=== PATIENT | male | born 1945 | race Caucasian/White ===

== ENCOUNTER → 2017-07-20 08:41 | Outpatient (CLI) | payer MEDICARE, OTHER, SELFPAY ==
[2017-07-20 10:48] LABS: AST(SGOT) 22 U/L (15-37); Alanine Aminotransfer ALT/SGPT 31 U/L (16-61); Albumin, Serum 3.6 g/dL (3.2-5.0); Alkaline Phosphatase 89 U/L (45-117); Anion Gap 8 (5-15); BUN 18 mg/dL (7-18); BUN/Creat Ratio 12.9 RATIO (10-20); Bilirubin, Direct 0.09 mg/dL (0.00-0.30); Chloride 106 mmol/L (98-107); Cholesterol 162 mg/dL (200); EST Glomerular Filtration Rate 53 mL/min (>60); Est Glom Filt Rate - Afr Amer 64 mL/min (>60); Globulin 3.5 g/dL (2.2-4.2); Glucose 98 mg/dL (74-106); High Density Lipoprotein 32 mg/dL; Potassium 4.2 mmol/L (3.5-5.1); Protein, Total 7.1 g/dL (6.4-8.2); Sodium Level 142 mmol/L (136-145); Triglycerides 165 mg/dL; Very Low Density Lipoprotein 33 mg/dL (5-40)
== END ==
PROVIDERS: Family Provider Family Medicine; PCP Family Medicine; Visit Provider Family Medicine
DX: I10 Essential (primary) hypertension (principal); E78.00 Pure hypercholesterolemia, unspecified
CPT/HCPCS: 36415; 80048; 80061; 80076

== ENCOUNTER → 2018-02-22 16:26 | Outpatient (CLI) | payer MEDICARE, OTHER, SELFPAY ==
--- NOTE | 2018-02-22 17:23 | RAD_ITS ---
HISTORY: Patient states he fell a couple of weeks ago onto his left knee. Pain and swelling since then and it is very hard to walk on it without it feeling like it is going to go out on him. COMPARISON: None FINDINGS: XR Knee Complete 4 Views No fracture or acute disease. Osteoarthritis with moderate to marked narrowing of the tibiofemoral medial compartment accompanied by subchondral sclerosis and mild marginal spurring. The lateral joint space compartment and patellofemoral joint appear preserved. No bony erosions. No significant joint effusion. Probable fabella. RAD/Knee 4 or More Views IMPRESSION: 1. Moderate to advanced osteoarthritis, medial compartment, left knee. 2. No fracture or acute disease. at 0113 Reported and signed by: Zoltan Bocanegra MD Electronically Signed: Zoltan Bocanegra, at 1:11 EST Tel , Service support ,
[2018-02-22 18:34] LABS: Anion Gap 9 (5-15); BUN 17 mg/dL (7-18); BUN/Creat Ratio 10.3 RATIO (10-20); Calcium,Total 8.8 mg/dL (8.5-10.1); Chloride 104 mmol/L (98-107); Creatinine, Serum 1.65 mg/dL (0.70-1.30); EST Glomerular Filtration Rate 44 mL/min (>60); Est Glom Filt Rate - Afr Amer 53 mL/min (>60); Glucose 132 mg/dL (74-106); Potassium 4.1 mmol/L (3.5-5.1); Sodium Level 140 mmol/L (136-145)
== END ==
PROVIDERS: Family Provider Family Medicine; PCP Family Medicine; Visit Provider Family Medicine
DX: I10 Essential (primary) hypertension (principal); M25.562 Pain in left knee
CPT/HCPCS: 36415; 73564; 80048

== ENCOUNTER → 2018-08-24 | Outpatient (CLI) | payer MEDICARE, OTHER, SELFPAY ==
--- NOTE | 2018-08-24 10:36 | RAD_ITS ---
STUDY: X-RAY CHEST REASON FOR EXAM: Male, 73 years old. Chest pain TECHNIQUE: AP COMPARISON: None. FINDINGS: The lungs are clear and expanded. There is no demonstrated pleural abnormality. Normal size heart. Normal mediastinum and alan. Normal visualized pulmonary arteries. There is atherosclerotic calcification of the aortic arch with tortuosity. There are diffuse degenerative changes of the visualized thoracic spine. Normal visualized ribs, clavicles, and shoulders. There is no demonstrated abnormality of the visualized soft tissue structures of the upper abdomen. RAD/Chest PA and Lateral IMPRESSION: No acute cardiopulmonary process. Electronically Signed: Haroon Peña MD at 14:55 EDT , Service support ,
[2018-08-24 12:32] LABS: Absolute Lymphocyte Count 1.26 X10^3/ul (0.83-4.51); Absolute Neutrophil Count 5.1 X10^3/uL (2.0-7.7); Basophil# 0.02 X10^3/uL; Basophil% 0.3 % (0-1); Eosinophil# 0.08 X10^3/uL; Eosinophils% 1.1 % (0-5); Hematocrit 46.2 % (40-54); Lymphocyte # 1.26 X10^3/ul (4.0); Lymphocyte % 16.9 % (19-41); Mean Corp Hgb Conc 34.6 g/gl (32-36); Mean Corpuscular Hgb 31.1 pg (27.0-32.0); Mean Corpuscular Volume 89.9 fL (80-94); Monocyte# 0.94 X10^3/uL; Monocyte% 12.6 % (0-10); Neutrophil # 5.13 X10^3/uL (2.7-7.7); Platelet Count 211 K/mm3 (150-450); RBC Distribution Width CV 13.8 % (11.6-14.6); RBC Distribution Width SD 45.2 fl (35.1-43.9); Red Blood Count 5.14 M/mm3 (4.6-6.2); White Blood Count 7.4 K/mm3 (4.4-11.0)
[2018-08-24 12:35] LABS: POSITIVE COUNT NO; POSITIVE DIFFERENTIAL NO; POSITIVE MORPHOLOGY NO
[2018-08-24 12:41] LABS: Anion Gap 5 (5-15); BUN 22 mg/dL (7-18); Calcium,Total 9.3 mg/dL (8.5-10.1); Chloride 104 mmol/L (98-107); Cholesterol 170 mg/dL (200); Creatinine, Serum 1.69 mg/dL (0.70-1.30); EST Glomerular Filtration Rate 43 mL/min (>60); Est Glom Filt Rate - Afr Amer 52 mL/min (>60); Glucose 98 mg/dL (74-106); High Density Lipoprotein 29 mg/dL; Sodium Level 138 mmol/L (136-145); Triglycerides 276 mg/dL; Very Low Density Lipoprotein 55 mg/dL (5-40)
== END | disposition home or self-care (01) ==
LOC: MTLAB 10:33
PROVIDERS: Family Provider Family Medicine; PCP Family Medicine; Referring Provider Family Medicine; Visit Provider Family Medicine
DX: E78.5 Hyperlipidemia, unspecified (principal); I10 Essential (primary) hypertension; R07.9 Chest pain, unspecified
CPT/HCPCS: 36415; 71046; 80048; 80061; 84484; 85025

== ENCOUNTER → 2019-02-20 | Outpatient (CLI) | payer MEDICARE, SELFPAY ==
[2019-02-20 12:39] LABS: Anion Gap 7 (5-15); BUN 15 mg/dL (7-18); BUN/Creat Ratio 10.7 RATIO (10-20); Calcium,Total 9.1 mg/dL (8.5-10.1); Chloride 104 mmol/L (98-107); Cholesterol 181 mg/dL (200); EST Glomerular Filtration Rate 53 mL/min (>60); Est Glom Filt Rate - Afr Amer 64 mL/min (>60); Glucose 131 mg/dL (74-106); High Density Lipoprotein 34 mg/dL; Potassium 4.1 mmol/L (3.5-5.1); Sodium Level 139 mmol/L (136-145); Triglycerides 234 mg/dL; Very Low Density Lipoprotein 47 mg/dL (5-40)
== END | disposition home or self-care (01) ==
PROVIDERS: Family Provider Family Medicine; PCP Family Medicine; Referring Provider Family Medicine; Visit Provider Family Medicine
DX: E78.5 Hyperlipidemia, unspecified (principal); I10 Essential (primary) hypertension
CPT/HCPCS: 36415; 80048; 80061

== ENCOUNTER → 2019-08-21 12:00 | Outpatient (CLI) | payer MEDICARE, SELFPAY ==
[2019-08-21 15:44] LABS: Anion Gap 8 (5-15); BUN 14 mg/dL (7-18); Calcium,Total 9.1 mg/dL (8.5-10.1); Chloride 104 mmol/L (98-107); EST Glomerular Filtration Rate 53 mL/min (>60); Est Glom Filt Rate - Afr Amer 64 mL/min (>60); Glucose 111 mg/dL (74-106); Potassium 3.9 mmol/L (3.5-5.1); Sodium Level 140 mmol/L (136-145)
== END ==
PROVIDERS: PCP Family Medicine; Visit Provider Family Medicine
DX: I10 Essential (primary) hypertension (principal)
CPT/HCPCS: 36415; 80048

== ENCOUNTER 2020-02-20 13:09 | Inpatient (IN) | payer MEDICARE, SELFPAY ==
[2020-02-20 13:16] VITALS: BP 175/100; PULSE 85; RESP 21; TEMP 37.1; O2SAT 94; BMI 26.9
--- NOTE | 2020-02-20 13:31 | EKG12_ITS ---
Test Reason : Blood Pressure : / mmHG Vent. Rate : 079 BPM Atrial Rate : 079 BPM P-R Int : 162 ms QRS Dur : 144 ms QT Int : 410 ms P-R-T Axes : 056 -18 060 degrees QTc Int : 470 ms Normal sinus rhythm Right bundle branch block Abnormal ECG Confirmed by MOHINI SHULTZ, VANNESSA ([id number]), social media editor RUTH HOYOS ([id number]) on 02/21/2020 11:11:52 AM Referred By: MARLEEN Confirmed By:VANNESSA RAJAN MD
--- NOTE | 2020-02-20 13:31 | CT_ITS ---
STUDY: CT BRAIN WITHOUT CONTRAST REASON FOR EXAM: Male, 74 years old. MENTAL STATUS CHANGE RADIATION DOSAGE (If Supplied By Facility): CTDIvol = ( 44.99 ) mGy, DLP = ( 846.73 ) mGycm TECHNIQUE: Transaxial CT imaging of the brain was performed without administration of intravenous contrast material. Individualized dose optimization techniques were used for this CT. COMPARISON: No relevant priors. FINDINGS: Normal soft tissue structures. Normal calvarium. There is mild cerebral atrophy with widening of the extra-axial spaces and ventricular dilatation. There are areas of decreased attenuation within the white matter tracts of the supratentorial brain, consistent with microvascular disease changes. Normal basal ganglia and thalami. Normal brainstem. Normal cerebellum. There is no intracranial hemorrhage. There are no findings of an acute ischemic infarction. Atherosclerotic calcification of the cavernous portions of the internal carotid arteries bilaterally. Normal visualized paranasal sinuses. CT/Brain/Head without Contrast IMPRESSION: Chronic involutional changes of the brain. Electronically Signed: Tu Rosario, at 15:41 EST , Service support ,
--- NOTE | 2020-02-20 13:32 | CT_ITS ---
STUDY: CT ABDOMEN AND PELVIS WITHOUT CONTRAST REASON FOR EXAM: Male, 74 years old. ABD PAIN RADIATION DOSAGE (If Supplied By Facility): CTDIvol = ( 17.01 ) mGy, DLP = ( 938.96 ) mGycm TECHNIQUE: Transaxial images were obtained from the dome of the diaphragm to the symphysis pubis without oral contrast, and without intravenous contrast. Sagittal and coronal images were reconstructed. Individualized dose optimization techniques were used for this CT. COMPARISON: None. FINDINGS: Focal infiltration in the right lower lobe. Mild degree of bilateral pleural thickening. Mild increased markings at the left lung base. Coronary artery calcification. Normal liver. Normal gallbladder and extrahepatic biliary system. Normal spleen. Normal pancreas. Normal bilateral adrenal glands. Normal right kidney. Normal left kidney. Normal visualized stomach. Normal small intestine. There are multiple colonic diverticula consistent with diverticulosis. The appendix is visualized and appears normal. There is diffuse atherosclerotic calcification of the abdominal aorta and its major visceral branches, without a demonstrated aneurysm. Normal inferior vena cava. Normal retroperitoneum. Normal urinary bladder. There is a small umbilical hernia containing fat. There are diffuse degenerative changes of the visualized lumbar spine. CT/Abdomen/Pelvis without Cont IMPRESSION: Infiltration in the right lower lobe with pericardial thickening bilaterally and mild increased markings at the left lung base. Sigmoid diverticulosis. Electronically Signed: Tu Rosario, at 15:40 EST , Service support ,
--- NOTE | 2020-02-20 13:38 | ED.VIS.GEN ---
History of Present Illness Chief Complaint: Unresponsive Informant: Patient, Family Onset: Weeks Narrative: Patient brought in by EMS secondary to decreased level of consciousness. is present at bedside to answer questions. She states that they have both been ill with cough and generally not feeling well for the past 3 weeks. For the past week he has not really been speaking to her. He will moan with movement as if he is in pain but does not answer questions. She states has not been eating or drinking anything over the past 3 or 4 days, but is taking his medications. She called the family doctor today to make an appointment who advised her to have him brought to the emergency room. - Past Medical History (1) Dementia Status: Chronic (2) Hypertension Status: Chronic (3) High cholesterol Status: Chronic Past Medical History - Allergies and Home Meds Allergies/Adverse Reactions: Allergies No Known Allergies Allergy (Verified 02/20/20 13:22) Primary Care Physician: Yrn Pinto MD [Primary Care Provider] - Lives: Spouse/ Significant Other Smoking Status: Never smoker Review of Systems ROS: Unable to Obtain - Moans with movement as if he is in pain Physical Exam Vital Signs/Narrative: Vital Signs Temp Pulse Resp BP Pulse Ox 02/20/20 13:16 98.7 F 85 21 H 175/100 H 94 General: Well nourished, Well developed Eyes: Perrl - Pupils 2 to 3 mm in diameter ENT: Moist mucous membranes Neck: Supple Cardiovascular: Regular rate, Regular rhythm Respiratory: No distress, CTA bilaterally Abdomen: Soft, Tender - Mild diffuse tenderness palpation., Hypoactive bowel sounds. Negative for: Guarding, Rebound tenderness Extremities: Nontender, Edema - 3+ bilateral lower extremity edema Skin: Normal color Neurological: - - Resting with eyes closed. He will squeeze both hands when asked. He will open eyes to command. Diagnostic/Tx/Re-eval Impressions Brain CT 02/20/20 13:31 IMPRESSION: Chronic involutional changes of the brain. Electronically Signed: Tu Rosario, at 15:41 EST , Service support , Abdomen/Pelvis CT 02/20/20 13:32 IMPRESSION: Infiltration in the right lower lobe with pericardial thickening bilaterally and mild increased markings at the left lung base. Sigmoid diverticulosis. Electronically Signed: Tu Rosario, at 15:40 EST , Service support , 02/20/20 13:31 Brain/Head without Contrast [CT] Stat 02/20/20 13:32 Abdomen/Pelvis without Cont [CT] Stat Laboratory Results 02/20/20 02/20/20 02/20/20 11:47 14:30 14:30 WBC 4.6 RBC 5.63 Hgb 17.2 H Hct 52.0 MCV 92.4 MCH 30.6 MCHC 33.1 RDW Std Deviation 47.0 H RDW Coeff of Jovi 13.8 Plt Count 155 MPV 10.0 Immature Gran % (Auto) 0.400 Neut % (Auto) 69.0 Lymph % (Auto) 16.4 L [place] % (Auto) 14.0 H Eos % (Auto) 0.0 Baso % (Auto) 0.2 Absolute Neuts (auto) 3.1 Absolute Lymphs (auto) 0.75 L Nucleated RBC % 0 Sodium 144 Potassium 4.3 Chloride 108 H Carbon Dioxide 30.0 Anion Gap 6 BUN 57 H Creatinine 2.25 H Estim Creat Clear Calc 32.09 Est GFR (MDRD) Af Amer 37 L Est GFR (MDRD) Non-Af 31 L BUN/Creatinine Ratio 25.3 H Glucose 122 H Lactic Acid Calcium 9.2 Total Bilirubin 0.90 Direct Bilirubin 0.31 H AST 57 H ALT 37 Alkaline Phosphatase 87 Ammonia Troponin I < 0.015 Total Protein 8.1 Albumin 3.6 Globulin 4.5 H Lipase 121 Urine Color Yellow Urine Clarity Sl. Cloudy Urine pH 5.0 Ur Specific [place] 1.025 Urine Protein 500 H Urine Glucose (UA) Normal Urine Ketones Negative Urine Occult Blood 25 H Urine Nitrite Negative Urine Bilirubin Negative Urine Urobilinogen Normal Ur Leukocyte Esterase Negative Urine RBC 0-5 SEEN Urine WBC 0 SEEN Ur Squamous Epith Cells 0-5 SEEN Amorphous Sediment 2+ URATE Urine Bacteria 0 SEEN Fine Granular Casts 0-5 SEEN Urine Mucus 0 SEEN 02/20/20 02/20/20 14:30 14:30 WBC RBC Hgb Hct MCV MCH MCHC RDW Std Deviation RDW Coeff of Jovi Plt Count MPV Immature Gran % (Auto) Neut % (Auto) Lymph % (Auto) [place] % (Auto) Eos % (Auto) Baso % (Auto) Absolute Neuts (auto) Absolute Lymphs (auto) Nucleated RBC % Sodium Potassium Chloride Carbon Dioxide Anion Gap BUN Creatinine Estim Creat Clear Calc Est GFR (MDRD) Af Amer Est GFR (MDRD) Non-Af BUN/Creatinine Ratio Glucose Lactic Acid 2.1 H* Calcium Total Bilirubin Direct Bilirubin AST ALT Alkaline Phosphatase Ammonia 15.0 Troponin I Total Protein Albumin Globulin Lipase Urine Color Urine Clarity Urine pH Ur Specific [place] Urine Protein Urine Glucose (UA) Urine Ketones Urine Occult Blood Urine Nitrite Urine Bilirubin Urine Urobilinogen Ur Leukocyte Esterase Urine RBC Urine WBC Ur Squamous Epith Cells Amorphous Sediment Urine Bacteria Fine Granular Casts Urine Mucus - EKG Initial EKG Interpretation: Sinus Rhythm - Sinus at 79 with right bundle branch block. No sign of acute ischemia. Not significantly changed when compared to prior study from 2012. - Medical Decision Making Patient given IV fluids on arrival. equipment monitor phototypesetting observed throughout his ED stay revealed no arrhythmias. Patient is responsive to voice and will open eyes to command. Test results discussed with at bedside. He does appear to be somewhat dehydrated and has a mildly elevated lactate. IV fluid bolus was ordered. CT flank does reveal lower lobe infiltrate and he is covered with Rocephin and Zithromax. Covid test is pending at this time will be signed out to oncoming physician. Plan will be to admit the patient once Covid test is available. ED Disposition - Plan for ED Patient: Disposition: Acute Care Hospital [facility] Diagnosis: Pneumonia, Dehydration Referrals: Yrn Pinto MD [Primary Care Provider] -
[2020-02-20] MEDS: 0.9% Normal Saline 1,000 ML 150 ML IV (15:05)
[2020-02-20 15:16] LABS: Bacteria 0 SEEN /hpf (None Seen); Mucous, Urine 0 SEEN /hpf (<or=2+); White Blood Cells 0 SEEN /hpf (0-5)
[2020-02-20 15:17] LABS: Absolute Lymphocyte Count 0.75 X10^3/uL (0.83-4.51); Absolute Neutrophil Count 3.1 X10^3/uL (2.0-7.7); Basophil# 0.01 X10^3/uL; Basophil% 0.2 % (0-1); Hemoglobin 17.2 g/dL (13.0-16.5); Lymphocyte # 0.75 X10^3/ul (4.0); Lymphocyte % 16.4 % (19-41); Mean Corp Hgb Conc 33.1 g/dL (32-36); Mean Corpuscular Hgb 30.6 pg (27.0-32.0); Mean Corpuscular Volume 92.4 fL (80-94); Monocyte# 0.64 X10^3/uL; NRBC Flagged by Analyzer 0 % (0-5); Neutrophil # 3.14 X10^3/uL (2.7-7.7); Platelet Count 155 K/mm3 (150-450); RBC Distribution Width CV 13.8 % (11.6-14.6); Red Blood Count 5.63 M/mm3 (4.6-6.2); White Blood Count 4.6 K/mm3 (4.4-11.0)
[2020-02-20 15:18] LABS: Color, Urine Yellow (Yellow); Glucose, Dipstick Normal (Normal); Ketone-Dipstick Negative (Negative); Leukocyte Esterase-Dipstick Negative /ul (Negative); Nitrite-Dipstick Negative (Negative); Occult Blood-Urine 25 /ul (Negative); Protein-Dipstick 500 mg/dl (Negative); Specific Gravity, Urine 1.025 (1.002-1.030); Urine Bilirubin Dipstick Negative (Negative); Urine Clarity Sl. Cloudy (Clear); Urine Urobilinogen Normal (Normal)
[2020-02-20 15:26] LABS: Amorphous Sediment 2+ URATE; Fine Granular Cast- Urine 0-5 SEEN /lpf (0-5); Red Blood Cells-Urine 0-5 SEEN /hpf (0-5); Squamous Epithelial Cells - UA 0-5 SEEN /hpf (0-5)
[2020-02-20 15:40] LABS: AST(SGOT) 57 U/L (15-37); Alanine Aminotransfer ALT/SGPT 37 U/L (16-61); Albumin, Serum 3.6 g/dL (3.2-5.0); Alkaline Phosphatase 87 U/L (45-117); Anion Gap 6 (5-15); BUN 57 mg/dL (7-18); BUN/Creat Ratio 25.3 RATIO (10-20); Bilirubin, Direct 0.31 mg/dL (0.00-0.30); Calcium,Total 9.2 mg/dL (8.5-10.1); Chloride 108 mmol/L (98-107); Creatinine, Serum 2.25 mg/dL (0.70-1.30); EST Glomerular Filtration Rate 31 mL/min (>60); Est Glom Filt Rate - Afr Amer 37 mL/min (>60); Estimated Creatinine Clearance 32.09 ml/min; Globulin 4.5 g/dL (2.2-4.2); Glucose 122 mg/dL (74-106); Lactic Acid 2.1 mmol/L (0.4-1.9); Lipase 121 U/L (73-393); Potassium 4.3 mmol/L (3.5-5.1); Protein, Total 8.1 g/dL (6.4-8.2); Sodium Level 144 mmol/L (136-145)
[2020-02-20 16:02] VITALS: BP 167/94; PULSE 74; RESP 14; O2SAT 94
[2020-02-20] MEDS: Ceftriaxone 1 GM/50 ML BAG IV (16:37)
[2020-02-20] MEDS: 0.9% Normal Saline 1,000 ML 999 ML IV ×2 (16:38→18:30)
--- NOTE | 2020-02-20 19:06 | ED.RN ---
Patient becomes agitated at times and now is verbally responsive and answering questions. Patient is confused and has pulled out both IVs. The right side IV noted to be infiltrated. MD notified and pharmacy called. warm compress applied to site after IV d/c'd by this nurse. New iv placed and wrapped. Will continue to monitor.
[2020-02-20 19:12] LABS: Reflex Lactate? Y
--- NOTE | 2020-02-20 19:40 | RAD_ITS ---
STUDY: X-RAY CHEST REASON FOR EXAM: Male, 74 years old. SOB TECHNIQUE: Frontal view COMPARISON: 08/24/2018 FINDINGS: The lungs are clear and expanded. There is no demonstrated pleural abnormality. Normal size heart. Normal mediastinum and alan. Normal visualized pulmonary arteries. Normal visualized aortic arch and descending thoracic aorta. Degenerative changes of the thoracic spine. Normal visualized ribs, clavicles, and shoulders. There is no demonstrated abnormality of the visualized soft tissue structures of the upper abdomen. RAD/Chest 1 View (Portable) IMPRESSION: Normal x-ray examination of the chest. Electronically Signed: Carlos A Tobin DO at 20:31 EST Tel [phone], Service support ,
[2020-02-20 20:03] VITALS: BP 180/93; PULSE 85; RESP 18; TEMP 37.7; O2SAT 94
--- NOTE | 2020-02-20 20:32 | HP.PCM_ITS ---
Problem List (1) Dementia Status: Chronic (2) Hypertension Status: Chronic (3) High cholesterol Status: Chronic (4) Pneumonia Status: Acute (5) Dehydration Status: Acute (6) SARS (severe acute respiratory syndrome) Status: Acute (7) RAUL (acute kidney injury) Status: Acute (8) Encephalopathy acute Status: Acute History of Present Illness Date of Admission: 02/20/20 Chief Complaint: altered mental status The patient is a 74 year old M with a significant history of HTN and dementia who presents to the ED with altered mental status that started about 1 week. Reportedly patient has been moaning in pain with movement. He has not been eating or drinking for the last 3 to 4 days. And he has had a cough for about 3 weeks. History was taken from emergency department doctor and (over the phone) as well as from ED triage notes since patient is confused. Past Medical History Past Medical History (Chronic Problems): Chronic Problems Dementia (Chronic) Hypertension (Chronic) High cholesterol (Chronic) Allergies No Known Allergies Allergy (Verified 02/20/20 13:22) Home Medications: Ambulatory Orders Medication Instructions Recorded Amlodipine [Norvasc] 10 mg PO DAILY 02/20/20 Aspirin [Aspirin, Baby] 81 mg PO DAILY 02/20/20 Donepezil HCl [Aricept] 23 mg PO DAILY 02/20/20 Famotidine 20 mg PO BID PRN 02/20/20 Memantine HCl [Namenda] 10 mg PO BID 02/20/20 Metoprolol Tartrate 25 mg PO DAILY 02/20/20 Omeprazole [Prilosec] 20 mg PO QHS 02/20/20 Pravastatin [Pravachol] 40 mg PO DAILY 02/20/20 Vitamin B Complex 1 tab PO DAILY 02/20/20 cycloBENZAPRine HCl [Flexeril] 10 mg PO QHS PRN 02/20/20 Surgical History: - - Patient is confused and unable to provide information. His does not recall any surgery that patient had. Lives: Spouse/ Significant Other Smoking Status: Never smoker - *Family History Maternal History Items: Dementia Paternal History Items: Dementia Review of Systems Constitutional: Reports: Anorexia, Malaise HEENT: Denies: Head Aches, Sinus Congestion, Sinus Drainage Cardiovascular: Denies: Chest Pain, Palpitations Respiratory: Reports: Cough. Denies: Wheezing Gastrointestinal: Reports: Abdominal Pain. Denies: Constipation, Diarrhea Genitourinary: Denies: Dysuria Musculoskeletal: Reports: Muscle pain. Denies: Joint Pain, Joint Tenderness Skin: Denies: Rash, Wounds Neurological: Reports: Confusion. Denies: Focal weakness, Numbness, Tingling Psychiatric: Denies: Anxiety, Depression, Homicidal Ideations, Suicidal Ideations Hematologic/ Lymphatic: Denies: Easy Bruising, Easy Bleeding VTE Information - Inpt Only VTE Present on Admission: No VTE Mechan Device Prophylaxis: None VTE Pharm Prophylaxis ordered?: Yes Patient Problems: Active and Suspected Problems Pneumonia (Acute) Dehydration (Acute) SARS (severe acute respiratory syndrome) (Acute) RAUL (acute kidney injury) (Acute) - Physical Exam Vitals/I&O's: Vital Signs Temp Pulse Resp BP Pulse Ox 99.9 F H 85 18 180/93 H 94 02/20/20 20:03 02/20/20 20:03 02/20/20 20:03 02/20/20 20:03 02/20/20 20:03 Oxygen Delivery Method Room Air Weight: 90.2 kg Body Mass Index (BMI) 26.9 Intake and Output for Last 24 Hours 02/18/20 02/19/20 02/20/20 23:59 23:59 23:59 Intake Total 3237.5 / 3237.5 Balance 3237.5 / 3237.5 General: Alert, Confused HEENT: Atraumatic, Normocephalic Neck: Supple, Trachea Midline Lungs: Clear to auscultation, Normal air movement Cardiovascular: Regular rate, Normal S1, Normal S2, No murmurs Abdomen: Bowel Sounds Present, Soft, Tender - Moans when his abdomen and any part of his body is palpated. Extremities: Capillary Refill Less than 3 Seconds, Edema - bilateral feet Skin: No rashes, No breakdown Musculoskeletal: Tenderness - bilateral feet Neurological: - - Does not follow commands Psych/Mental Status: Flat Affect Laboratory Results 02/20/20 11:47: Urine Color Yellow, Urine Clarity Sl. Cloudy, Urine pH 5.0, Ur Specific [place] 1.025, Urine Protein 500 H, Urine Glucose (UA) Normal, Urine Ketones Negative, Urine Occult Blood 25 H, Urine Nitrite Negative, Urine Bilirubin Negative, Urine Urobilinogen Normal, Ur Leukocyte Esterase Negative, Urine RBC 0-5 SEEN, Urine WBC 0 SEEN, Ur Squamous Epith Cells 0-5 SEEN, Amorphous Sediment 2+ URATE, Urine Bacteria 0 SEEN, Fine Granular Casts 0-5 SEEN, Urine Mucus 0 SEEN 02/20/20 14:30: WBC 4.6, RBC 5.63, Hgb 17.2 H, Hct 52.0, MCV 92.4, MCH 30.6, MCHC 33.1, RDW Std Deviation 47.0 H, RDW Coeff of Jovi 13.8, Plt Count 155, MPV 10.0, Immature Gran % (Auto) 0.400, Neut % (Auto) 69.0, Lymph % (Auto) 16.4 L, [place] % (Auto) 14.0 H, Eos % (Auto) 0.0, Baso % (Auto) 0.2, Absolute Neuts (auto) 3.1, Absolute Lymphs (auto) 0.75 L, Nucleated RBC % 0 02/20/20 14:30: Sodium 144, Potassium 4.3, Chloride 108 H, Carbon Dioxide 30.0, Anion Gap 6, BUN 57 H, Creatinine 2.25 H, Estim Creat Clear Calc 32.09, Est GFR (MDRD) Af Amer 37 L, Est GFR (MDRD) Non-Af 31 L, BUN/Creatinine Ratio 25.3 H, Glucose 122 H, Calcium 9.2, Total Bilirubin 0.90, Direct Bilirubin 0.31 H, AST 57 H, ALT 37, Alkaline Phosphatase 87, Troponin I < 0.015, Total Protein 8.1, Albumin 3.6, Globulin 4.5 H, Lipase 121 02/20/20 14:30: Lactic Acid 2.1 H* 02/20/20 14:30: Ammonia 15.0 02/20/20 15:40: COVID-19 ([facility]ILIA) Positive 02/20/20 19:55: Lactic Acid Pending Current Medications Sodium Chloride () 1,000 mls @ 150 mls/hr IV .[id number] [facility] Last Infusion: 02/20/20 16:38 Dose: 0 mls/hr Documented by: Assessment/Plan All Active Problems Pneumonia (Acute) Dehydration (Acute) SARS (severe acute respiratory syndrome) (Acute) RAUL (acute kidney injury) (Acute) Encephalopathy acute (Acute) SARS COVID-19 infection/Pneumonia Radiologist impression of abdominal/pelvis CT: Infiltration the right lower lobe with pericardial thickening bilaterally and mild increased markings at the left lung base. Sigmoid diverticulosis. Actual image abdomen and pelvis CT was independently reviewed. I agree with radiologist interpretation. Radiology impression of chest x-ray: Normal x-ray examination of the chest. Actual chest x-ray image was independently reviewed. I agree with radiologist interpretation. COVID-19 was positive. Procalcitonin, strep pneumonia antigen and Legionella urine antigen ordered. Received ceftriaxone and azithromycin ordered. We will hold off further antibiotics at this time. Patient is not hypoxic. D-dimer not ordered at this time. Emergent department labs reviewed showed lactic acidosis of 2.1; trend. Also AST is elevated at 57. Review of old labs showed normal baseline AST. Trend CMP. Tylenol for fever and Mucinex for cough ordered. Decadron 6 mg IV x1 and then 6 mg p.o. daily ordered. Infectious disease consult and pulmonology consult. RAUL Creatinine is 2.25 BUN is 57. BUN over creatinine is 25.3 Baseline creatinine is between 1.40-1.69. Likely prerenal from poor intake. Received normal saline bolus and then maintenance infusion at emergency department. Gentle IV hydration ordered in the setting of COVID-19 infection. Acute encephalopathy (infectious) Patient with baseline dementia. Likely baseline confusion exacerbated by infection. Haldol ordered for agitation as Nurse reported that patient ripped off his IV and is agitated. Hypertension On presentation blood pressure was not within goal Amlodipine continued Dementia Aricept and Namenda continued GERD Pepcid continued DVT prophylaxis Subcutaneous Lovenox ordered. Inpatient E&M: 52970 Init Hosp L3
[2020-02-20 20:35] VITALS: BMI 26.3
[2020-02-20 21:09] VITALS: BP 145/96; PULSE 89; RESP 18; TEMP 37.7; O2SAT 95
[2020-02-20] MEDS: 0.9% Normal Saline 1,000 ML 75 ML IV (21:24)
[2020-02-20 21:38] LABS: Procalcitonin 0.21 ng/mL (0.00-0.09)
[2020-02-20] MEDS: dexAMETHasone 10 MG/ML Vial 6 MG IV (22:11)
[2020-02-20] MEDS: Enoxaparin 30 MG/0.3 ML Syringe SC (22:12)
[2020-02-20] MEDS: Memantine Hydrochloride 10 MG Tablet PO (22:12)
[2020-02-20] MEDS: Pravastatin 40 MG Tablet PO (22:12)
[2020-02-20] MEDS: Haloperidol Lactate 5 MG/ML Vial 2 MG IM (22:47)
[2020-02-21] VITALS (8 sets, daily range): BP systolic 122–167; BP diastolic 73–94; PULSE 71–85; RESP 16–18; TEMP 36.3–37.7; O2SAT 94–97
[2020-02-21 05:32] LABS: Absolute Lymphocyte Count 0.43 X10^3/uL (0.83-4.51); Basophil# 0.01 X10^3/uL; Basophil% 0.3 % (0-1); Hematocrit 46.7 % (40-54); Hemoglobin 15.5 g/dL (13.0-16.5); Lymphocyte # 0.43 X10^3/ul (4.0); Lymphocyte % 11.4 % (19-41); Mean Corp Hgb Conc 33.2 g/dL (32-36); Mean Corpuscular Hgb 31.3 pg (27.0-32.0); Mean Corpuscular Volume 94.2 fL (80-94); Mean Platelet Vol. 10.3 fl (6.2-12.0); Monocyte# 0.32 X10^3/uL; Monocyte% 8.5 % (0-10); NRBC Flagged by Analyzer 0 % (0-5); Neutrophil # 2.97 X10^3/uL (2.7-7.7); POSITIVE DIFFERENTIAL YES; Platelet Count 138 K/mm3 (150-450); RBC Distribution Width CV 13.5 % (11.6-14.6); Red Blood Count 4.96 M/mm3 (4.6-6.2); White Blood Count 3.8 K/mm3 (4.4-11.0)
[2020-02-21 05:39] LABS: Differential Indicated SCAN CRITERIA MET
[2020-02-21 06:01] LABS: Anion Gap 7 (5-15); BUN 35 mg/dL (7-18); BUN/Creat Ratio 24.6 RATIO (10-20); Calcium,Total 8.3 mg/dL (8.5-10.1); Chloride 112 mmol/L (98-107); Creatinine, Serum 1.42 mg/dL (0.70-1.30); EST Glomerular Filtration Rate 52 mL/min (>60); Est Glom Filt Rate - Afr Amer 63 mL/min (>60); Estimated Creatinine Clearance 50.85 ml/min; Glucose 118 mg/dL (74-106); Potassium 3.8 mmol/L (3.5-5.1); Sodium Level 147 mmol/L (136-145)
[2020-02-21 06:40] LABS: Differential Comment SCANNED
--- NOTE | 2020-02-21 07:00 | PCM.PN.HOSP ---
Patient Problems: Active and Suspected Problems Pneumonia (Acute) Dehydration (Acute) SARS (severe acute respiratory syndrome) (Acute) RAUL (acute kidney injury) (Acute) Encephalopathy acute (Acute) COVID-19 (Acute) Subjective: Patient following admission with no acute events overnight per self or per nursing report with history of malaise, fatigue, decreased interactivity with poor oral intake over the last 3 to 4 days prompting presentation to the ED. Following evaluation patient denies any recent dyspnea but does have cough during evaluation and states he has had no nausea, emesis, abdominal pain or diarrhea. Patient is extremely confused but able to interact and answer some questions. Patient lives at home alone with his elderly . Patient denies fevers, chills, nausea, emesis, abdominal pain, chest pain or dyspnea. Objective: Physical Examination: General: awake, alert, oriented to self and realizes that he is in the hospital but cannot give month or year but able to answer other questions, remains cooperative, seated upright in medical surgical bed in no apparent distress. Skin: normal color, turgor, no icterus, cyanosis. HEENT: AT/NC, EOMI, PERRLA, moderately dry MM. Lungs: Diminished breath sounds, greater bases, appropriate effort, no rales, ronchi or wheezing. Heart: Regular rate and rhythm; no gallop, rub audible. Abdomen: soft, NTTP, ND, normal BS. Extremities: no cyanosis, clubbing, or edema. Neurological: patient awake, alert, oriented as noted; cognitive function suspect mildly decreased from baseline however patient with underlying dementia; pupils equally reactive to light and accomodation; cranial nerves II-XII grossly normal, moving all 4 extremities, no focal deficits, strength moderately to severely global decrease secondary to acute presentation. Psychiatric: affect appears fatigued, no acute evidence of depressive or anxiety feelings. Vitals/I&O's: Vital Signs Temp Pulse Resp BP Pulse Ox 98.5 F 85 18 142/90 H 95 02/21/20 05:09 02/21/20 05:09 02/21/20 05:09 02/21/20 05:09 02/21/20 05:09 Oxygen Delivery Method Room Air Weight: 194 lb Body Mass Index (BMI) 26.3 Intake and Output for Last 24 Hours 02/19/20 02/20/20 02/21/20 23:59 23:59 23:59 Intake Total 3357.5 / 3357.5 240 / 240 Balance 3357.5 / 3357.5 240 / 240 Microbiology Past 72 Hours 02/20/20 14:47 Urine Catheter - Catheter Legionella Antigen - Final 02/20/20 14:47 Urine Catheter - Catheter Streptococcus pneumoniae Antigen (M - Final Laboratory Results 02/20/20 11:47: Urine Color Yellow, Urine Clarity Sl. Cloudy, Urine pH 5.0, Ur Specific [place] 1.025, Urine Protein 500 H, Urine Glucose (UA) Normal, Urine Ketones Negative, Urine Occult Blood 25 H, Urine Nitrite Negative, Urine Bilirubin Negative, Urine Urobilinogen Normal, Ur Leukocyte Esterase Negative, Urine RBC 0-5 SEEN, Urine WBC 0 SEEN, Ur Squamous Epith Cells 0-5 SEEN, Amorphous Sediment 2+ URATE, Urine Bacteria 0 SEEN, Fine Granular Casts 0-5 SEEN, Urine Mucus 0 SEEN 02/20/20 14:30: WBC 4.6, RBC 5.63, Hgb 17.2 H, Hct 52.0, MCV 92.4, MCH 30.6, MCHC 33.1, RDW Std Deviation 47.0 H, RDW Coeff of Jovi 13.8, Plt Count 155, MPV 10.0, Immature Gran % (Auto) 0.400, Neut % (Auto) 69.0, Lymph % (Auto) 16.4 L, [place] % (Auto) 14.0 H, Eos % (Auto) 0.0, Baso % (Auto) 0.2, Absolute Neuts (auto) 3.1, Absolute Lymphs (auto) 0.75 L, Nucleated RBC % 0 02/20/20 14:30: Sodium 144, Potassium 4.3, Chloride 108 H, Carbon Dioxide 30.0, Anion Gap 6, BUN 57 H, Creatinine 2.25 H, Estim Creat Clear Calc 32.09, Est GFR (MDRD) Af Amer 37 L, Est GFR (MDRD) Non-Af 31 L, BUN/Creatinine Ratio 25.3 H, Glucose 122 H, Calcium 9.2, Total Bilirubin 0.90, Direct Bilirubin 0.31 H, AST 57 H, ALT 37, Alkaline Phosphatase 87, Troponin I < 0.015, Total Protein 8.1, Albumin 3.6, Globulin 4.5 H, Lipase 121 02/20/20 14:30: Lactic Acid 2.1 H* 02/20/20 14:30: Ammonia 15.0 02/20/20 14:30: Procalcitonin 0.21 H 02/20/20 15:40: COVID-19 (ADILIA) Positive 02/20/20 19:55: Lactic Acid 2.0 02/21/20 04:44: WBC 3.8 L, RBC 4.96, Hgb 15.5, Hct 46.7, MCV 94.2 H, MCH 31.3, MCHC 33.2, RDW Std Deviation 47.0 H, RDW Coeff of Jovi 13.5, Plt Count 138 L, MPV 10.3, Immature Gran % (Auto) 0.800, Neut % (Auto) 79.0 H, Lymph % (Auto) 11.4 L, [place] % (Auto) 8.5, Eos % (Auto) 0.0, Baso % (Auto) 0.3, Absolute Neuts (auto) 3.0, Absolute Lymphs (auto) 0.43 L, Nucleated RBC % 0, Differential Comment SCANNED, Diff Path Review May foll 02/21/20 04:44: Sodium 147 H, Potassium 3.8, Chloride 112 H, Carbon Dioxide 28.0, Anion Gap 7, BUN 35 H, Creatinine 1.42 H, Estim Creat Clear Calc 50.85, Est GFR (MDRD) Af Amer 63, Est GFR (MDRD) Non-Af 52 L, BUN/Creatinine Ratio 24.6 H, Glucose 118 H, Calcium 8.3 L Current Medications Acetaminophen (Acetaminophen 325 Mg Tablet) 650 mg PO Q6H PRN PRN PRN Reason: Pain Score 1-10/Temp > 100.7 F Amlodipine Besylate (Amlodipine 10 Mg Tablet) 10 mg PO DAILY [facility] Aspirin (Aspirin 81 Mg Tab.Chew) 81 mg PO DAILY [facility] Cyclobenzaprine HCl (Cyclobenzaprine Hcl 10 Mg Tablet) 10 mg PO QHS PRN PRN Reason: muscle spasms Dexamethasone (Dexamethasone 2 Mg Tablet) 6 mg PO DAILY [facility] Donepezil HCl (Donepezil Hcl 10 Mg Tablet) 20 mg PO DAILY [facility] Enoxaparin Sodium (Enoxaparin 30 Mg/0.3 Ml Syringe) 30 mg SC BID [facility] Last Admin: 02/20/20 22:12 Dose: 30 mg Documented by: Famotidine (Famotidine 20 Mg Tablet) 20 mg PO BID PRN PRN PRN Reason: gerd Guaifenesin (Guaifenesin 10 Ml Udc (200mg/10ml)) 20 ml PO Q4H PRN PRN PRN Reason: COUGH Haloperidol Lactate (Haloperidol Lactate 5 Mg/Ml Vial) 2 mg IM Q6H PRN PRN PRN Reason: AGITATION Last Admin: 02/20/20 22:47 Dose: 2 mg Documented by: Hydralazine HCl (Hydralazine 20 Mg/Ml Vial) 10 mg IV Q4H PRN PRN PRN Reason: SBP > 160 Sodium Chloride () 1,000 mls @ 75 mls/hr IV .[id number] [facility] Last Admin: 02/20/20 21:24 Dose: 75 mls/hr Documented by: Sodium Chloride () 250 mls @ 15 mls/hr IV .[id number] PRN PRN Reason: Saline Flush Sodium Chloride () 250 mls @ 15 mls/hr IV .[id number] PRN PRN Reason: Additional IVPB Infusion Memantine (Memantine Hydrochloride 10 Mg Tablet) 10 mg PO BID [facility] Last Admin: 02/20/20 22:12 Dose: 10 mg Documented by: Metoprolol Tartrate (Metoprolol Tartrate 25 Mg Tablet) 25 mg PO DAILY [facility] Multivitamins (Vitamin B Comp W-C Capsule) 1 capsule PO DAILY [facility] Nutritional Formula (Lactose Free) (Ensure Enlive 120 Ml Liquid) 120 ml PO TIDCM [facility] Ondansetron HCl (Ondansetron 4 Mg/2 Ml Vial) 4 mg IV Q8H PRN PRN PRN Reason: NAUSEA/VOMITING Pantoprazole Sodium (Pantoprazole Sodium 20 Mg Tablet) 20 mg PO DAILY [facility] Pravastatin Sodium (Pravastatin 40 Mg Tablet) 40 mg PO DAILY@2200 [facility] Last Admin: 02/20/20 22:12 Dose: 40 mg Documented by: Sodium Chloride (0.9% Saline Lock 10 Ml Syringe) 10 - 40 ml IV UD PRN PRN Reason: SALINE FLUSH STROKE Vital Signs/Narrative: Vital Signs Temp Pulse Resp BP Pulse Ox 02/21/20 05:09 98.5 F 85 18 142/90 H 95 Medical Necessity - Tobacco Use Smoking Status: Never smoker Assessment/Plan All Active Problems Pneumonia (Acute) Dehydration (Acute) SARS (severe acute respiratory syndrome) (Acute) RAUL (acute kidney injury) (Acute) Encephalopathy acute (Acute) COVID-19 (Acute) The patient is a 74 y/o M w/ PMHx: HTN, HLD, Dementia unclear type with unclear behavioral disturbance history, GERD, CKD stage III who presents to the [facility] ED on 02/20/20 with history of increased fatigue, malaise, confusion with decreased oral intake as well as cough and mild dyspnea x 3 wk, worse 3-4 days. 1. Acute Metabolic Encephalopathy secondary to Acute Viral Syndrome, COVID-19 as well as #2: Patient admitted to the COVID MS unit, will maintain on oxygen with wean as tolerated to room air, encourage HOB, IS parameters, negative respiratory viral panel, negative strep and Legionella antigen, blood culture x2 pending per ED, ED chest x-ray with no acute cardiopulmonary findings, initial Covid lab panel obtained with noted LDH 351, CRP 50.40, procalcitonin 0.21, troponin less than 0.015, ferritin 977, urinalysis not marked appearing, continue supportive care including q 2 hour turning including prone given no prone bed availability and judicious hydration concurrent RAUL, closely monitor for worsening status for ARDS and multiorgan failure. Given patient hypoxia with oxygenation lower 90s initiated also on Decadron regimen. Infectious disease and pulmonary medicine consulted and following. 2. Acute kidney injury on CKD stage III: Secondary to acute presentation as noted #1. Admission BUN/Cr 57/2.25, prior baseline creatinine noted to be 1.4, judiciously hydrated with repeat 02/21/2020 BUN/creatinine 35/1.42. 3. Dementia, unclear type with unclear behavioral disturbance history: We will continue patient's home Aricept and Namenda regimen, complicates presentation, maintain on fall precautions. 4. Hypertension: Continue home regimen including Norvasc, metoprolol with hold parameters, PRN hydralazine. 5. Hyperlipidemia: Continue home statin regimen. 6. GERD: We will maintain on Protonix. 7. DVT prophylaxis: SCDs, Lovenox. 8. CODE STATUS: Full code. Inpatient E&M: 02709 Subs Hosp L2
[2020-02-21 07:25] LABS: Ferritin 977 ng/mL (26-388); LDH 351 U/L (87-241); Magnesium 2.3 mg/dL (1.6-2.6)
[2020-02-21] MEDS: Donepezil HCl 10 MG Tablet 20 MG PO (07:50)
[2020-02-21] MEDS: dexAMETHasone 2 MG TABLET 6 MG PO (07:50)
[2020-02-21] MEDS: Vitamin B Comp W-C Capsule 1 CAP PO (07:50)
[2020-02-21] MEDS: Memantine Hydrochloride 10 MG Tablet PO ×2 (07:51→21:44)
[2020-02-21] MEDS: Metoprolol Tartrate 25 MG Tablet PO (07:51)
[2020-02-21] MEDS: Aspirin 81 MG TAB.CHEW PO (07:51)
[2020-02-21] MEDS: Enoxaparin 30 MG/0.3 ML Syringe SC ×2 (07:51→21:43)
[2020-02-21] MEDS: Pantoprazole Sodium 20 MG Tablet PO (08:04)
[2020-02-21] MEDS: amLODIPine 10 MG Tablet PO (08:04)
[2020-02-21 08:56] LABS: D-Dimer Quantitative (DVT/PE) 0.95 FEU/ug/m (0.27-0.49)
--- NOTE | 2020-02-21 09:09 | VDLE_ITS ---
Reason For Study: elevated D-Dimer, Covid + RIGHT LEFT CFV, FV, POP V, T/P Trunk, PTV, Peroneal V, CFV, FV, POP V, T/P Trunk, PTV, Peroneal V, and GSV are compressible. and GSV are compressible. Procedure This is a venous duplex using B-mode, color flow and spectral Doppler. Exam performed portable in patient room. The exam was abbreviated due to the COVID 19 protocol. The exam was diagnostic. A preliminary report was called and/or faxed to [facility]. Interpretation Summary No evidence for acute deep venous thrombosis bilateral lower extremities with patent and compressible bilateral great saphenous veins. Abbreviated COVID-19 protocol Ordering Physician: Josie Hein Performed By: Boom Shin RVT
--- NOTE | 2020-02-21 12:38 | PCM.CONS.PUL ---
Problem List (1) Dementia Status: Chronic (2) Hypertension Status: Chronic (3) SARS (severe acute respiratory syndrome) Status: Acute (4) RAUL (acute kidney injury) Status: Acute Reason for Consult Date of Consultation: 02/21/20 Reason for Consultation: COVID-19 History of Present Illness: The patient is a 74 year old M, with past medical history listed below, who presented [facility] on 02/20/2020 secondary to decreasing levels of consciousness. Patient reportedly was with his in the ER and they both had not been feeling well for the last 3 weeks. Patient reportedly was only moaning with movement, but not answering questions. Patient had also not had anything to eat or drink over the last 3 to 4 days except for his baseline medications. The PCP was called and they were referred to the emergency department. On arrival to the emergency department, patient was afebrile, but hypertensive at 175/100. Patient was saturating 94% on room air. Patient was noted to have bilateral lower extremity edema. A CT of the abdomen showed some infiltrates in the right lower lobe and sigmoid diverticulosis. Patient also had a CT that was unremarkable. Laboratory work-up showed no significant leukocytosis, but elevated hemoglobin at 17.2, BUN of 50 and creatinine of 2.25. Liver function was within normal limits. UA was relatively unremarkable except for urate crystals and a slightly elevated lactate of 2.1 with ammonia of 15. Patient was given IV fluids with some improvement. Given lower lobe infiltrate, patient was covered with Rocephin and Zithromax. Later in the ER course, patient was found to be positive for COVID-19 and was admitted to the floor for further evaluation. No family was at the bedside during my evaluation. Patient was pleasant and interactive, but very confused and unable to answer most of my questions. Patient reportedly has never been a smoker and denied any recent exposures. Patient did feel that he was better from yesterday, but was unable to give specific details. Unable to obtain review of systems for the reasons stated above. Past Medical History Past Medical History (Chronic Problems): Chronic Problems Dementia (Chronic) Hypertension (Chronic) High cholesterol (Chronic) Allergies No Known Allergies Allergy (Verified 02/20/20 13:22) Home Medications: Ambulatory Orders Medication Instructions Recorded Amlodipine [Norvasc] 10 mg PO DAILY 02/20/20 Aspirin [Aspirin, Baby] 81 mg PO DAILY 02/20/20 Donepezil HCl [Aricept] 23 mg PO DAILY 02/20/20 Famotidine 20 mg PO BID PRN 02/20/20 Memantine HCl [Namenda] 10 mg PO BID 02/20/20 Metoprolol Tartrate 25 mg PO DAILY 02/20/20 Omeprazole [Prilosec] 20 mg PO QHS 02/20/20 Pravastatin [Pravachol] 40 mg PO DAILY 02/20/20 Vitamin B Complex 1 tab PO DAILY 02/20/20 cycloBENZAPRine HCl [Flexeril] 10 mg PO QHS PRN 02/20/20 Surgical History: - - Patient is confused and unable to provide information. His does not recall any surgery that patient had. Lives: Spouse/ Significant Other Smoking Status: Never smoker - *Family History Maternal History Items: Dementia Paternal History Items: Dementia Review of Systems Comment: See HPI Patient Problems: Active and Suspected Problems Pneumonia (Acute) Dehydration (Acute) SARS (severe acute respiratory syndrome) (Acute) RAUL (acute kidney injury) (Acute) Encephalopathy acute (Acute) Objective: All imaging was personally reviewed. Agree with formal interpretation. Patient has never had a pulmonary function test or echocardiogram available for review at [facility]. - Physical Exam Vitals/I&O's: Vital Signs Temp Pulse Resp BP Pulse Ox 36.3 C L 75 16 167/93 H 94 02/21/20 07:58 02/21/20 07:58 02/21/20 07:58 02/21/20 07:58 02/21/20 08:40 Oxygen Delivery Method Room Air Weight: 87.997 kg Body Mass Index (BMI) 26.3 Intake and Output for Last 24 Hours 02/19/20 02/20/20 02/21/20 23:59 23:59 23:59 Intake Total 3357.5 / 3357.5 1180 / 1180 Balance 3357.5 / 3357.5 1180 / 1180 General: Alert, Cooperative, Confused, Disoriented, - - No conversational dyspnea. HEENT: Atraumatic, PERRLA, EOMI, Normocephalic, - - No scleral icterus or injection noted Oral: No Gingival or Mucosal Lesions/ Ulcerations, Dry Mucosa Neck: Supple, No JVD, No Nodes, Trachea Midline Lungs: No rhonchi, No wheeze, No rales, Diminished Cardiovascular: Regular rate, Regular Rhythm, Normal S1, Normal S2, No murmurs, No rub noted, No Gallop Abdomen: Bowel Sounds Present, Soft, Non Tender, Non-Distended Extremities: No clubbing, No cyanosis, Edema - 2+ lower extremity Skin: No rashes, No breakdown Musculoskeletal: No Tenderness to Palpation of Joints or Extremities Lymphatic: No Cervical, Supraclavicular, or Inguinal Adenopathy Neurological: Cranial nerves II-XII grossly intact, Neuro grossly intact, Motor Exam 5/5 strength throughout, - - Nonfocal neurologic exam. No dysarthria, but did have difficulty answering questions Psych/Mental Status: Flat Affect Microbiology Past 72 Hours 02/21/20 07:20 Mucosa - Nasopharyngeal Respiratory Panel (PCR) - Final 02/20/20 14:47 Urine Catheter - Catheter Legionella Antigen - Final 02/20/20 14:47 Urine Catheter - Catheter Streptococcus pneumoniae Antigen (M - Final Laboratory Results 02/20/20 11:47: Urine Color Yellow, Urine Clarity Sl. Cloudy, Urine pH 5.0, Ur Specific [place] 1.025, Urine Protein 500 H, Urine Glucose (UA) Normal, Urine Ketones Negative, Urine Occult Blood 25 H, Urine Nitrite Negative, Urine Bilirubin Negative, Urine Urobilinogen Normal, Ur Leukocyte Esterase Negative, Urine RBC 0-5 SEEN, Urine WBC 0 SEEN, Ur Squamous Epith Cells 0-5 SEEN, Amorphous Sediment 2+ URATE, Urine Bacteria 0 SEEN, Fine Granular Casts 0-5 SEEN, Urine Mucus 0 SEEN 02/20/20 14:30: WBC 4.6, RBC 5.63, Hgb 17.2 H, Hct 52.0, MCV 92.4, MCH 30.6, MCHC 33.1, RDW Std Deviation 47.0 H, RDW Coeff of Jovi 13.8, Plt Count 155, MPV 10.0, Immature Gran % (Auto) 0.400, Neut % (Auto) 69.0, Lymph % (Auto) 16.4 L, [place] % (Auto) 14.0 H, Eos % (Auto) 0.0, Baso % (Auto) 0.2, Absolute Neuts (auto) 3.1, Absolute Lymphs (auto) 0.75 L, Nucleated RBC % 0 02/20/20 14:30: Sodium 144, Potassium 4.3, Chloride 108 H, Carbon Dioxide 30.0, Anion Gap 6, BUN 57 H, Creatinine 2.25 H, Estim Creat Clear Calc 32.09, Est GFR (MDRD) Af Amer 37 L, Est GFR (MDRD) Non-Af 31 L, BUN/Creatinine Ratio 25.3 H, Glucose 122 H, Calcium 9.2, Total Bilirubin 0.90, Direct Bilirubin 0.31 H, AST 57 H, ALT 37, Alkaline Phosphatase 87, Troponin I < 0.015, Total Protein 8.1, Albumin 3.6, Globulin 4.5 H, Lipase 121 02/20/20 14:30: Lactic Acid 2.1 H* 02/20/20 14:30: Ammonia 15.0 02/20/20 14:30: Procalcitonin 0.21 H 02/20/20 15:40: COVID-19 (ADILIA) Positive 02/20/20 19:55: Lactic Acid 2.0 02/21/20 04:44: WBC 3.8 L, RBC 4.96, Hgb 15.5, Hct 46.7, MCV 94.2 H, MCH 31.3, MCHC 33.2, RDW Std Deviation 47.0 H, RDW Coeff of [place]ovi 13.5, Plt Count 138 L, MPV 10.3, Immature Gran % (Auto) 0.800, Neut % (Auto) 79.0 H, Lymph % (Auto) 11.4 L, [place] % (Auto) 8.5, Eos % (Auto) 0.0, Baso % (Auto) 0.3, Absolute Neuts (auto) 3.0, Absolute Lymphs (auto) 0.43 L, Nucleated RBC % 0, Differential Comment SCANNED, Diff Path Review August02/21/20 04:44: Sodium 147 H, Potassium 3.8, Chloride 112 H, Carbon Dioxide 28.0, Anion Gap 7, BUN 35 H, Creatinine 1.42 H, Estim Creat Clear Calc 50.85, Est GFR (MDRD) Af Amer 63, Est GFR (MDRD) Non-Af 52 L, BUN/Creatinine Ratio 24.6 H, Glucose 118 H, Calcium 8.3 L 02/21/20 04:44: Magnesium 2.3, Ferritin 977 H, Lactate Dehydrogenase 351 H, C-React Prot Ext Range 50.40 H 02/21/20 08:18: D-Dimer Quant (PE/DVT) 0.95 H* Current Medications Acetaminophen (Acetaminophen 325 Mg Tablet) 650 mg PO Q6H PRN PRN PRN Reason: Pain Score 1-10/Temp > 100.7 F Amlodipine Besylate (Amlodipine 10 Mg Tablet) 10 mg PO DAILY [facility] Last Admin: 02/21/20 08:04 Dose: 10 mg Documented by: Aspirin (Aspirin 81 Mg Tab.Chew) 81 mg PO DAILY [facility] Last Admin: 02/21/20 07:51 Dose: 81 mg Documented by: Cyclobenzaprine HCl (Cyclobenzaprine Hcl 10 Mg Tablet) 10 mg PO QHS PRN PRN Reason: muscle spasms Dexamethasone (Dexamethasone 2 Mg Tablet) 6 mg PO DAILY [facility] Last Admin: 02/21/20 07:50 Dose: 6 mg Documented by: Donepezil HCl (Donepezil Hcl 10 Mg Tablet) 20 mg PO DAILY [facility] Last Admin: 02/21/20 07:50 Dose: 20 mg Documented by: Enoxaparin Sodium (Enoxaparin 30 Mg/0.3 Ml Syringe) 30 mg SC BID [facility] Last Admin: 02/21/20 07:51 Dose: 30 mg Documented by: Famotidine (Famotidine 20 Mg Tablet) 20 mg PO BID PRN PRN PRN Reason: gerd Guaifenesin (Guaifenesin 10 Ml Udc (200mg/10ml)) 20 ml PO Q4H PRN PRN PRN Reason: COUGH Haloperidol Lactate (Haloperidol Lactate 5 Mg/Ml Vial) 2 mg IM Q6H PRN PRN PRN Reason: AGITATION Last Admin: 02/20/20 22:47 Dose: 2 mg Documented by: Hydralazine HCl (Hydralazine 20 Mg/Ml Vial) 10 mg IV Q4H PRN PRN PRN Reason: SBP > 160 Sodium Chloride () 250 mls @ 15 mls/hr IV .[id number] PRN PRN Reason: Saline Flush Sodium Chloride () 250 mls @ 15 mls/hr IV .[id number] PRN PRN Reason: Additional IVPB Infusion Memantine (Memantine Hydrochloride 10 Mg Tablet) 10 mg PO BID [facility] Last Admin: 02/21/20 07:51 Dose: 10 mg Documented by: Metoprolol Tartrate (Metoprolol Tartrate 25 Mg Tablet) 25 mg PO DAILY [facility] Last Admin: 02/21/20 07:51 Dose: 25 mg Documented by: Multivitamins (Vitamin B Comp W-C Capsule) 1 capsule PO DAILY [facility] Last Admin: 02/21/20 07:50 Dose: 1 capsule Documented by: Ondansetron HCl (Ondansetron 4 Mg/2 Ml Vial) 4 mg IV Q8H PRN PRN PRN Reason: NAUSEA/VOMITING Pantoprazole Sodium (Pantoprazole Sodium 20 Mg Tablet) 20 mg PO DAILY [facility] Last Admin: 02/21/20 08:04 Dose: 20 mg Documented by: Pravastatin Sodium (Pravastatin 40 Mg Tablet) 40 mg PO DAILY@2200 [facility] Last Admin: 02/20/20 22:12 Dose: 40 mg Documented by: Sodium Chloride (0.9% Saline Lock 10 Ml Syringe) 10 - 40 ml IV UD PRN PRN Reason: SALINE FLUSH Clinical Impression(s) from Imaging Studies Brain CT 02/20/20 13:31 IMPRESSION: Chronic involutional changes of the brain. Electronically Signed: Tu Rosario, at 15:41 EST , Service support , Abdomen/Pelvis CT 02/20/20 13:32 IMPRESSION: Infiltration in the right lower lobe with pericardial thickening bilaterally and mild increased markings at the left lung base. Sigmoid diverticulosis. Electronically Signed: Tu Rosario, at 15:40 EST , Service support , Chest X-Ray 02/20/20 19:40 IMPRESSION: Normal x-ray examination of the chest. Electronically Signed: Carlos A Tobin DO at 20:31 EST Tel [phone], Service support , Assessment/Plan All Active Problems Pneumonia (Acute) Dehydration (Acute) SARS (severe acute respiratory syndrome) (Acute) RAUL (acute kidney injury) (Acute) Encephalopathy acute (Acute) RECOMMENDATIONS: 1. Continue hydration, consider transition to LR 2. Okay to continue with Decadron and Lovenox 3. Probably not a good candidate for convalescent serum or Remdesivir. Defer to ID 4. Walking oximetry prior to discharge IMPRESSIONS: 1. COVID-19 pneumonia Patient did have an infiltrate noted in the right lower lobe, but clinical history is suggestive that patient has been symptomatic for up to 3 weeks. Patient is saturating well on room air at this time. Agree with monitoring off of antibiotics for now. D-dimer is of little help in this scenario in my opinion. Okay to treat symptomatically. Patient has been given Decadron, but will have to watch closely for the development of delirium. This may have been the etiology of patient's decreased p.o. intake given patient's predominance of loss of taste and smell. However, patient is denying those symptoms on my evaluation. 2. Acute kidney injury [place] prerenal etiology secondary to decreased p.o. intake. Recommend gentle hydration, but patient is developing hyperchloremia and hypernatremia secondary to normal saline. Patient may do better with LR. Patient may have decreased clearance secondary to renal injury. This would be problematic in the use of Remdesivir. 2. Acute encephalopathy/delirium secondary to #1 and dehydration Unclear baseline. Patient appears to be doing well at this time. Haldol as needed. Would avoid benzodiazepines if possible. Nursing delirium protocol would be appropriate. 4. Advanced age/dementia/hypertension/GERD Complicates care, management, recovery and prognosis. Okay to continue with baseline medications from my perspective. Inpatient E&M: 68103 Init Hosp L2
--- NOTE | 2020-02-21 13:19 | CASEMGMT ---
JL CM Assessment Note Presentation: Diagnosis: PMH: PCP: Specialists: Insurance: Preferred Pharmacy: Prescription Benefit: LNOK: Living Arrangements: Tranportation: DME: HHC: SNF: Patient DC Goals: DC Plan: CM available for discharge planning coordination. Contact CM for any concerns/needs that may arise. Brianna LOPES RN ACM
--- NOTE | 2020-02-21 13:21 | CASEMGMT ---
RN CM Assessment Note Intro role of CM to via phone. Per , patient is ambulatory, does not use DME. does driving. states she plans to have patient return home on dc. -Reviewed covid-19 quarantine with who states she has family who can bring groceries. Reinforced that family should drop groceries, etc outside home and not go in to visit. Also informed she should not be going out in public. She states she understands. -Reviewed symptoms with who states she currently has mild symptoms. Instructed to take her temperature daily and notify her physician that her is covid positive. Diagnosis: covid 19 PCP: Dr. Pinto Insurance: [facility] Preferred Pharmacy: [facility] Pres[facility] Benefit: yes LNOK: , Laurie Cole Living Arrangements: Lives in one story home generally independent with his . states patient should use a cane, but doesn't. Tranportation: drives DME: cane, does not use SNF: none HHC: none Patient DC Goals: home DC Plan: TBD. Patient is confused, requiring Haldol in hospital. PT/OT evaluations pending. CM available for discharge planning coordination. Contact CM for any concerns/needs that may arise. Brianna LOPES RN ACM
[2020-02-21 13:53] LABS: Pathologist Review Reviewed
--- NOTE | 2020-02-21 15:24 | CON.PCM_ITS ---
Problem List (1) COVID-19 Status: Acute Reason for Consult: covid Consulted by: Dr. Hein History of Present Illness: The patient is a 74 year old M presented to ED 02/19 with 3 weeks of cough, dyspnea, decreased mental status, weakness. Admitted on dex. RAUL improving. Pt reports feeling better, denies dyspnea, aches, pain. Full ROS limited by mental status but otherwise neg. - Medical History Past Medical History (Chronic Problems): Chronic Problems Dementia (Chronic) Hypertension (Chronic) High cholesterol (Chronic) Allergies/Adverse Reactions: Allergies No Known Allergies Allergy (Verified 02/20/20 13:22) Home Medications: Ambulatory Orders Medication Instructions Recorded Amlodipine [Norvasc] 10 mg PO DAILY 02/20/20 Aspirin [Aspirin, Baby] 81 mg PO DAILY 02/20/20 Donepezil HCl [Aricept] 23 mg PO DAILY 02/20/20 Famotidine 20 mg PO BID PRN 02/20/20 Memantine HCl [Namenda] 10 mg PO BID 02/20/20 Metoprolol Tartrate 25 mg PO DAILY 02/20/20 Omeprazole [Prilosec] 20 mg PO QHS 02/20/20 Pravastatin [Pravachol] 40 mg PO DAILY 02/20/20 Vitamin B Complex 1 tab PO DAILY 02/20/20 cycloBENZAPRine HCl [Flexeril] 10 mg PO QHS PRN 02/20/20 - Social History SMOKING STATUS:: Never smoker Vital Signs Temp Pulse Resp BP Pulse Ox 99.8 F H 71 16 122/73 H 94 02/21/20 13:21 02/21/20 13:21 02/21/20 13:21 02/21/20 13:21 02/21/20 14:29 Oxygen Delivery Method Room Air Weight: 87.997 kg Body Mass Index (BMI) 26.3 Microbiology Past 72 Hours 02/21/20 07:20 Respiratory Panel (PCR) - Final Mucosa - Nasopharyngeal 02/20/20 14:47 Legionella Antigen - Final Urine Catheter - Catheter Streptococcus pneumoniae Antigen (M - Final Laboratory Tests Past 24 Hrs 02/20/20 02/20/20 02/20/20 11:47 14:30 14:30 WBC RBC Hgb Hct MCV MCH MCHC RDW Std Deviation RDW Coeff of Jovi Plt Count MPV Immature Gran % (Auto) Neut % (Auto) Lymph % (Auto) [place] % (Auto) Eos % (Auto) Baso % (Auto) Absolute Neuts (auto) Absolute Lymphs (auto) Nucleated RBC % Differential Comment Diff Path Review D-Dimer Quant (PE/DVT) Sodium 144 Potassium 4.3 Chloride 108 H Carbon Dioxide 30.0 Anion Gap 6 BUN 57 H Creatinine 2.25 H Estim Creat Clear Calc 32.09 Est GFR (MDRD) Af Amer 37 L Est GFR (MDRD) Non-Af 31 L BUN/Creatinine Ratio 25.3 H Glucose 122 H Lactic Acid 2.1 H* Calcium 9.2 Magnesium Ferritin Total Bilirubin 0.90 Direct Bilirubin 0.31 H AST 57 H ALT 37 Alkaline Phosphatase 87 Ammonia Lactate Dehydrogenase Troponin I < 0.015 C-React Prot Ext Range Total Protein 8.1 Albumin 3.6 Globulin 4.5 H Lipase 121 Procalcitonin Urine RBC 0-5 SEEN Urine WBC 0 SEEN Ur Squamous Epith Cells 0-5 SEEN Amorphous Sediment 2+ URATE Urine Bacteria 0 SEEN Fine Granular Casts 0-5 SEEN Urine Mucus 0 SEEN COVID-19 ([place]) 02/20/20 02/20/20 02/20/20 14:30 14:30 15:40 WBC RBC Hgb Hct MCV MCH MCHC RDW Std Deviation RDW Coeff of Jovi Plt Count MPV Immature Gran % (Auto) Neut % (Auto) Lymph % (Auto) [place] % (Auto) Eos % (Auto) Baso % (Auto) Absolute Neuts (auto) Absolute Lymphs (auto) Nucleated RBC % Differential Comment Diff Path Review D-Dimer Quant (PE/DVT) Sodium Potassium Chloride Carbon Dioxide Anion Gap BUN Creatinine Estim Creat Clear Calc Est GFR (MDRD) Af Amer Est GFR (MDRD) Non-Af BUN/Creatinine Ratio Glucose Lactic Acid Calcium Magnesium Ferritin Total Bilirubin Direct Bilirubin AST ALT Alkaline Phosphatase Ammonia 15.0 Lactate Dehydrogenase Troponin I C-React Prot Ext Range Total Protein Albumin Globulin Lipase Procalcitonin 0.21 H Urine RBC Urine WBC Ur Squamous Epith Cells Amorphous Sediment Urine Bacteria Fine Granular Casts Urine Mucus COVID-19 ([place]) Positive 02/20/20 02/21/20 02/21/20 19:55 04:44 04:44 WBC 3.8 L RBC 4.96 Hgb 15.5 Hct 46.7 MCV 94.2 H MCH 31.3 MCHC 33.2 RDW Std Deviation 47.0 H RDW Coeff of Jovi 13.5 Plt Count 138 L MPV 10.3 Immature Gran % (Auto) 0.800 Neut % (Auto) 79.0 H Lymph % (Auto) 11.4 L [place] % (Auto) 8.5 Eos % (Auto) 0.0 Baso % (Auto) 0.3 Absolute Neuts (auto) 3.0 Absolute Lymphs (auto) 0.43 L Nucleated RBC % 0 Differential Comment SCANNED Diff Path Review Reviewed D-Dimer Quant (PE/DVT) Sodium 147 H Potassium 3.8 Chloride 112 H Carbon Dioxide 28.0 Anion Gap 7 BUN 35 H Creatinine 1.42 H Estim Creat Clear Calc 50.85 Est GFR (MDRD) Af Amer 63 Est GFR (MDRD) Non-Af 52 L BUN/Creatinine Ratio 24.6 H Glucose 118 H Lactic Acid 2.0 Calcium 8.3 L Magnesium Ferritin Total Bilirubin Direct Bilirubin AST ALT Alkaline Phosphatase Ammonia Lactate Dehydrogenase Troponin I C-React Prot Ext Range Total Protein Albumin Globulin Lipase Procalcitonin Urine RBC Urine WBC Ur Squamous Epith Cells Amorphous Sediment Urine Bacteria Fine Granular Casts Urine Mucus COVID-19 ([place]) 02/21/20 02/21/20 04:44 08:18 WBC RBC Hgb Hct MCV MCH MCHC RDW Std Deviation RDW Coeff of Jovi Plt Count MPV Immature Gran % (Auto) Neut % (Auto) Lymph % (Auto) [place] % (Auto) Eos % (Auto) Baso % (Auto) Absolute Neuts (auto) Absolute Lymphs (auto) Nucleated RBC % Differential Comment Diff Path Review D-Dimer Quant (PE/DVT) 0.95 H* Sodium Potassium Chloride Carbon Dioxide Anion Gap BUN Creatinine Estim Creat Clear Calc Est GFR (MDRD) Af Amer Est GFR (MDRD) Non-Af BUN/Creatinine Ratio Glucose Lactic Acid Calcium Magnesium 2.3 Ferritin 977 H Total Bilirubin Direct Bilirubin AST ALT Alkaline Phosphatase Ammonia Lactate Dehydrogenase 351 H Troponin I C-React Prot Ext Range 50.40 H Total Protein Albumin Globulin Lipase Procalcitonin Urine RBC Urine WBC Ur Squamous Epith Cells Amorphous Sediment Urine Bacteria Fine Granular Casts Urine Mucus COVID-19 ([place]) - Other Studies Radiology: [] reviewed Other Studies: [] Route of nutrition/ use of supplements: [] Nutritional Intake: [] IV Site: [] Connell Catheter: [] - Physical Exam General: Alert, Cooperative, No apparent distress, - - oriented x0 HEENT: Atraumatic, PERRLA, EOMI Neck: Supple, No Nodes Lungs: Diminished Cardiovascular: Regular rate, Regular Rhythm Abdomen: Soft, Non Tender, Non-Distended Extremities: No edema Skin: No rashes IV Site: Peripheral, without redness Musculoskeletal: No Tenderness to Palpation of Joints or Extremities Neurological: Cranial nerves II-XII grossly intact - Assessment/Plan Antibiotics: [] Assessment/Plan: [] Active and Suspected Problems Pneumonia (Acute) Dehydration (Acute) SARS (severe acute respiratory syndrome) (Acute) RAUL (acute kidney injury) (Acute) Encephalopathy acute (Acute) covid, encephalopathy, RAUL - reportedly sx for past 3 weeks. Feeling better on dex, intermediate dose lovenox. RAUL improved. CXR clear and satting well on RA, so I do not see a role for remdesivir or plasma. Will follow, thank you
[2020-02-21] MEDS: Pravastatin 40 MG Tablet PO (21:44)
[2020-02-21] MEDS: cycloBENZAPRine HCl 10 MG Tablet PO (21:44)
[2020-02-21] MEDS: Acetaminophen 325 MG Tablet 650 MG PO (21:44)
[2020-02-22] VITALS (10 sets, daily range): BP systolic 128–166; BP diastolic 74–90; PULSE 68–86; RESP 18–20; TEMP 36.5–38.8; O2SAT 93–96
[2020-02-22] MEDS: guaiFENesin 10 ML UDC (200MG/10ML) 20 ML PO (03:30)
--- NOTE | 2020-02-22 07:22 | PN_ITS ---
Patient Problems: Active and Suspected Problems Pneumonia (Acute) Dehydration (Acute) SARS (severe acute respiratory syndrome) (Acute) RAUL (acute kidney injury) (Acute) Encephalopathy acute (Acute) COVID-19 (Acute) Subjective: Patient overnight with continued increased confusion and occasionally combativeness but improved quickly. Patient is extremely weak and requires at least 2 person assist. She also with oral intake only when insisted by individual in the room. Patient lives at home with his elderly who is been caring with him and previously was more functional with underlying dementia. Discussed frankly with case management and patient will not safely be able to return home but would need fdc facility given the severity of his underlying weakness. He continues to remain stable on room air denying any current dyspnea but does have coughing fits. Patient denies fevers, chills, nausea, emesis, abdominal pain, chest pain. Objective: Physical Examination: General: awake, alert, oriented to self, some recent events, remains confused, difficult to assess chronic dementia versus and acute encephalopathy, currently cooperative, laying in the medical surgical Covid bed, no acute distress currently. Skin: Mildly flushed color, normal turgor, no icterus, no cyanosis. HEENT: AT/NC, EOMI, PERRLA, MMM. Lungs: Diminished breath sounds, greater bases, appropriate effort, no rales, ronchi or wheezing. Heart: Regular rate and rhythm; no gallop, rub audible. Abdomen: soft, NTTP, ND, normal BS. Extremities: no cyanosis, clubbing, or edema. Neurological: patient awake, alert, oriented as noted; cognitive function suspect mildly decreased from baseline however patient with underlying dementia; pupils equally reactive to light and accomodation; cranial nerves II-XII grossly normal, moving all 4 extremities, no focal deficits, strength severely global decrease secondary to acute presentation. Psychiatric: affect appears fatigued, no acute evidence of depressive or anxiety feelings. Vitals/I&O's: Vital Signs Temp Pulse Resp BP Pulse Ox 98.5 F 81 18 151/90 H 96 02/22/20 03:30 02/22/20 03:30 02/22/20 03:30 02/22/20 03:30 02/22/20 03:30 Oxygen Delivery Method Room Air Weight: 194 lb Body Mass Index (BMI) 26.3 Intake and Output for Last 24 Hours 02/20/20 02/21/20 02/22/20 23:59 23:59 23:59 Intake Total 3357.5 / 3357.5 2930 / 2930 Balance 3357.5 / 3357.5 2930 / 2930 Microbiology Past 72 Hours 02/21/20 07:20 Mucosa - Nasopharyngeal Respiratory Panel (PCR) - Final 02/20/20 14:47 Urine Catheter - Catheter Legionella Antigen - Final 02/20/20 14:47 Urine Catheter - Catheter Streptococcus pneumoniae Antigen (M - Final Laboratory Results 02/20/20 15:40: COVID-19 ([place]) Positive 02/21/20 04:44: Diff Path Review Reviewed 02/21/20 04:44: Magnesium 2.3, Ferritin 977 H, Lactate Dehydrogenase 351 H, C- React Prot Ext Range 50.40 H 02/21/20 08:18: D-Dimer Quant (PE/DVT) 0.95 H* Current Medications Acetaminophen (Acetaminophen 325 Mg Tablet) 650 mg PO Q6H PRN PRN PRN Reason: Pain Score 1-10/Temp > 100.7 F Last Admin: 02/21/20 21:44 Dose: 650 mg Documented by: Amlodipine Besylate (Amlodipine 10 Mg Tablet) 10 mg PO DAILY [facility] Last Admin: 02/21/20 08:04 Dose: 10 mg Documented by: Aspirin (Aspirin 81 Mg Tab.Chew) 81 mg PO DAILY [facility] Last Admin: 02/21/20 07:51 Dose: 81 mg Documented by: Cyclobenzaprine HCl (Cyclobenzaprine Hcl 10 Mg Tablet) 10 mg PO QHS PRN PRN Reason: muscle spasms Last Admin: 02/21/20 21:44 Dose: 10 mg Documented by: Dexamethasone (Dexamethasone 2 Mg Tablet) 6 mg PO DAILY [facility] Last Admin: 02/21/20 07:50 Dose: 6 mg Documented by: Donepezil HCl (Donepezil Hcl 10 Mg Tablet) 20 mg PO DAILY [facility] Last Admin: 02/21/20 07:50 Dose: 20 mg Documented by: Enoxaparin Sodium (Enoxaparin 30 Mg/0.3 Ml Syringe) 30 mg SC BID [facility] Last Admin: 02/21/20 21:43 Dose: 30 mg Documented by: Famotidine (Famotidine 20 Mg Tablet) 20 mg PO BID PRN PRN PRN Reason: gerd Guaifenesin (Guaifenesin 10 Ml Udc (200mg/10ml)) 20 ml PO Q4H PRN PRN PRN Reason: COUGH Last Admin: 02/22/20 03:30 Dose: 20 ml Documented by: Haloperidol Lactate (Haloperidol Lactate 5 Mg/Ml Vial) 2 mg IM Q6H PRN PRN PRN Reason: AGITATION Last Admin: 02/20/20 22:47 Dose: 2 mg Documented by: Hydralazine HCl (Hydralazine 20 Mg/Ml Vial) 10 mg IV Q4H PRN PRN PRN Reason: SBP > 160 Sodium Chloride () 250 mls @ 15 mls/hr IV .[id number] PRN PRN Reason: Saline Flush Sodium Chloride () 250 mls @ 15 mls/hr IV .[id number] PRN PRN Reason: Additional IVPB Infusion Memantine (Memantine Hydrochloride 10 Mg Tablet) 10 mg PO BID [facility] Last Admin: 02/21/20 21:44 Dose: 10 mg Documented by: Metoprolol Tartrate (Metoprolol Tartrate 25 Mg Tablet) 25 mg PO DAILY [facility] Last Admin: 02/21/20 07:51 Dose: 25 mg Documented by: Multivitamins (Vitamin B Comp W-C Capsule) 1 capsule PO DAILY [facility] Last Admin: 02/21/20 07:50 Dose: 1 capsule Documented by: Ondansetron HCl (Ondansetron 4 Mg/2 Ml Vial) 4 mg IV Q8H PRN PRN PRN Reason: NAUSEA/VOMITING Pantoprazole Sodium (Pantoprazole Sodium 20 Mg Tablet) 20 mg PO DAILY [facility] Last Admin: 02/21/20 08:04 Dose: 20 mg Documented by: Pravastatin Sodium (Pravastatin 40 Mg Tablet) 40 mg PO DAILY@2200 [facility] Last Admin: 02/21/20 21:44 Dose: 40 mg Documented by: Sodium Chloride (0.9% Saline Lock 10 Ml Syringe) 10 - 40 ml IV UD PRN PRN Reason: SALINE FLUSH STROKE Vital Signs/Narrative: Vital Signs Temp Pulse Resp BP Pulse Ox 02/22/20 03:30 98.5 F 81 18 151/90 H 96 Medical Necessity - Tobacco Use Smoking Status: Never smoker Assessment/Plan All Active Problems Pneumonia (Acute) Dehydration (Acute) SARS (severe acute respiratory syndrome) (Acute) RAUL (acute kidney injury) (Acute) Encephalopathy acute (Acute) COVID-19 (Acute) The patient is a 74 y/o M w/ PMHx: HTN, HLD, Dementia unclear type with unclear behavioral disturbance history, GERD, CKD stage III who presents to the [facility] ED on 02/20/20 with history of increased fatigue, malaise, confusion with decreased oral intake as well as cough and mild dyspnea x 3 wk, worse 3-4 days. 1. Acute Metabolic Encephalopathy secondary to Acute Viral Syndrome, COVID-19 as well as #2: Patient admitted to the COVID MS unit, will maintain on oxygen with wean as tolerated to room air, encourage HOB, IS parameters, negative respi ratory viral panel, negative strep and Legionella antigen, blood culture x2 pending per ED, ED chest x-ray with no acute cardiopulmonary findings, initial Covid lab panel obtained with noted LDH 351, CRP 50.40, procalcitonin 0.21, troponin less than 0.015, ferritin 977, urinalysis not marked appearing, continue supportive care including q 2 hour turning including prone given no prone bed availability and judicious hydration concurrent RAUL, closely monitor for worsening status for ARDS and multiorgan failure. 02/22/2020 BUN/creatinine 32/1.42, remains improved. Given patient hypoxia with oxygenation lower 90s initiated also on Decadron regimen. Infectious disease and pulmonary medicine consulted and following. Given patient's severe debility, required 2 person assist patient is not safe for discharge to home and will acquire fdc facility placement which was relayed to case management. 2. Acute kidney injury on CKD stage III: Secondary to acute presentation as noted #1. Admission BUN/Cr 57/2.25, prior baseline creatinine noted to be 1.4, judiciously hydrated with repeat 02/22/2020 BUN/creatinine 32/1.42, continued improvement. 3. Dementia, unclear type with unclear behavioral disturbance history: We will continue patient's home Aricept and Namenda regimen, complicates presentation, maintain on fall precautions. 4. Hypertension: Continue home regimen including Norvasc, metoprolol with hold parameters, PRN hydralazine. 5. Hyperlipidemia: Continue home statin regimen. 6. GERD: We will maintain on Protonix. 7. DVT prophylaxis: SCDs, Lovenox. 8. CODE STATUS: Full code. Inpatient E&M: 13821 Subs Hosp L2
[2020-02-22 07:52] LABS: Absolute Lymphocyte Count 0.65 X10^3/uL (0.83-4.51); Absolute Neutrophil Count 5.1 X10^3/uL (2.0-7.7); Basophil# 0.01 X10^3/uL; Basophil% 0.2 % (0-1); Hematocrit 47.8 % (40-54); Hemoglobin 15.5 g/dL (13.0-16.5); Lymphocyte # 0.65 X10^3/ul (4.0); Lymphocyte % 10.5 % (19-41); Mean Corp Hgb Conc 32.4 g/dL (32-36); Mean Corpuscular Hgb 30.6 pg (27.0-32.0); Mean Corpuscular Volume 94.5 fL (80-94); Mean Platelet Vol. 10.6 fl (6.2-12.0); Monocyte# 0.35 X10^3/uL; Monocyte% 5.7 % (0-10); NRBC Flagged by Analyzer 0 % (0-5); Neutrophil # 5.08 X10^3/uL (2.7-7.7); Neutrophil % 82.3 % (47-70); Platelet Count 150 K/mm3 (150-450); RBC Distribution Width CV 13.5 % (11.6-14.6); RBC Distribution Width SD 47.1 fl (35.1-43.9); Red Blood Count 5.06 M/mm3 (4.6-6.2); White Blood Count 6.2 K/mm3 (4.4-11.0)
[2020-02-22 07:56] LABS: ALB/GLOB Ratio 0.8 RATIO (0.9-2.4); AST(SGOT) 58 U/L (15-37); Alanine Aminotransfer ALT/SGPT 36 U/L (16-61); Albumin, Serum 2.9 g/dL (3.2-5.0); Alkaline Phosphatase 73 U/L (45-117); Anion Gap 5 (5-15); BUN 32 mg/dL (7-18); BUN/Creat Ratio 22.5 RATIO (10-20); Calcium,Total 8.5 mg/dL (8.5-10.1); Chloride 112 mmol/L (98-107); Creatinine, Serum 1.42 mg/dL (0.70-1.30); EST Glomerular Filtration Rate 52 mL/min (>60); Est Glom Filt Rate - Afr Amer 63 mL/min (>60); Estimated Creatinine Clearance 50.85 ml/min; Ferritin 1495 ng/mL (26-388); Globulin 3.8 g/dL (2.2-4.2); Glucose 98 mg/dL (74-106); Potassium 3.5 mmol/L (3.5-5.1); Protein, Total 6.7 g/dL (6.4-8.2); Sodium Level 148 mmol/L (136-145)
[2020-02-22] MEDS: dexAMETHasone 2 MG TABLET 6 MG PO (08:08)
[2020-02-22] MEDS: Pantoprazole Sodium 20 MG Tablet PO (08:08)
[2020-02-22] MEDS: Donepezil HCl 10 MG Tablet 20 MG PO (08:09)
[2020-02-22] MEDS: amLODIPine 10 MG Tablet PO (08:09)
[2020-02-22] MEDS: Memantine Hydrochloride 10 MG Tablet PO ×2 (08:10→20:15)
[2020-02-22] MEDS: Aspirin 81 MG TAB.CHEW PO (08:10)
[2020-02-22] MEDS: Vitamin B Comp W-C Capsule 1 CAP PO (08:10)
[2020-02-22] MEDS: Metoprolol Tartrate 25 MG Tablet PO (08:10)
[2020-02-22] MEDS: Enoxaparin 30 MG/0.3 ML Syringe SC ×2 (08:11→20:20)
[2020-02-22 08:13] LABS: D-Dimer Quantitative (DVT/PE) 1.23 FEU/ug/m (0.27-0.49)
--- NOTE | 2020-02-22 08:28 | NURSING ---
pt resisitant to nurse care- fighting against staff upon trying to turn pt for linen change. pt takes oblong yellow pill out of his mouth and throws it across room. hob elevated.
--- NOTE | 2020-02-22 08:30 | NURSING ---
This nurse is aware of the D-Dimer of 1.23. Will Inform Dr. Hein.
--- NOTE | 2020-02-22 08:48 | CT_ITS ---
STUDY: CTA CHEST REASON FOR EXAM: Male, 74 years old. COVID +, pneumonia, cough x 3 weeks, SOB, weakness, decreased mental status, suspicion of PE. RADIATION DOSAGE (If Supplied By Facility): CTDIvol = ( 16.91 ) mGy, DLP = ( 482.30 ) mGycm TECHNIQUE: The examination was performed with the intravenous administration of 75 cc of Isovue-370. Post-processing of the angiographic images was performed, with multiplanar reformation and 3D reconstruction. Individualized dose optimization techniques were used for this CT. COMPARISON: None. FINDINGS: Normal enhancement of the main pulmonary artery and right and left pulmonary arteries. There is limited enhancement of the bilateral peripheral pulmonary arteries. There is no demonstrated pulmonary embolism. There is atherosclerotic tortuosity of the aortic arch and descending thoracic aorta. Suboptimal enhancement of the thoracic aorta. No demonstrated definite dissection. Normal heart and pericardium. Few small normal size mediastinal nodes. No evidence of mediastinal adenopathy. Normal hilar regions. Normal visualized trachea and bronchi. The lungs are well expanded. Patchy bilateral infiltrates in the peripheral aspects of the lungs consistent with Covid 19 pneumonia There are no pleural effusions. Normal chest wall structures. There are degenerative changes of thoracic spine. Normal visualized upper abdomen. CT/CTA Chest W/WO Contrast IMPRESSION: No evidence of pulmonary embolism. Patchy bilateral infiltrates consistent with the clinical history of Covid 19 pneumonia. Electronically Signed: hCris Li MD at 9:58 EST Tel , Service support ,
[2020-02-22 11:10] LABS: Procalcitonin 0.15 ng/mL (0.00-0.09)
[2020-02-22] MEDS: 0.9% Normal Saline 1,000 ML 100 ML IV (11:22)
[2020-02-22] MEDS: 0.9% Saline Lock 10 ML Syringe IV ×2 (11:22→20:18)
[2020-02-22] MEDS: Acetaminophen 325 MG Tablet 650 MG PO (11:32)
--- NOTE | 2020-02-22 11:36 | PCM.PN.PUL ---
Patient Problems: Active and Suspected Problems Pneumonia (Acute) Dehydration (Acute) SARS (severe acute respiratory syndrome) (Acute) RAUL (acute kidney injury) (Acute) Encephalopathy acute (Acute) COVID-19 (Acute) Subjective: Patient did well overnight. Patient remains pleasantly demented. Patient states I am all right with any question. Patient has remained on room air and was witnessed coughing occasionally. - Physical Exam Vitals/I&O's: Vital Signs Temp Pulse Resp BP Pulse Ox 38.6 C H 86 18 133/76 H 93 02/22/20 11:19 02/22/20 11:19 02/22/20 11:19 02/22/20 11:19 02/22/20 11:19 Oxygen Delivery Method Room Air Weight: 87.997 kg Body Mass Index (BMI) 26.3 Intake and Output for Last 24 Hours 02/20/20 02/21/20 02/22/20 23:59 23:59 23:59 Intake Total 3357.5 / 3357.5 2930 / 2930 Balance 3357.5 / 3357.5 2930 / 2930 General: Alert, Cooperative, No apparent distress, Confused, Disoriented, - - No conversational dyspnea HEENT: Atraumatic, PERRLA, EOMI, - - No scleral icterus or injection noted Oral: Moist Mucosa, No Gingival or Mucosal Lesions/ Ulcerations Neck: Supple, No JVD, No Nodes, Trachea Midline Lungs: Clear to auscultation, Normal air movement, No rhonchi, No wheeze, No rales, - - Symmetric expansion. Cardiovascular: Regular rate, Regular Rhythm, Normal S1, Normal S2, No murmurs, No rub noted, No Gallop Abdomen: Bowel Sounds Present, Soft, Non Tender, Non-Distended Extremities: No clubbing, No cyanosis, No edema Skin: No rashes, No breakdown, - - Slightly crystal appearance Musculoskeletal: No Tenderness to Palpation of Joints or Extremities Lymphatic: No Cervical, Supraclavicular, or Inguinal Adenopathy Neurological: Cranial nerves II-XII grossly intact, Neuro grossly intact, Motor Exam 5/5 strength throughout, - - Neuro exam is much as patient would follow commands Psych/Mental Status: Appropriate, Flat Affect Microbiology Past 72 Hours 02/20/20 14:37 Blood Culture (Wb) - Anticubital Right Blood Culture - Preliminary No growth in 48 hours. 02/20/20 14:30 Blood Culture (Wb) - Anticubital Left Blood Culture - Preliminary No growth in 48 hours. 02/21/20 07:20 Mucosa - Nasopharyngeal Respiratory Panel (PCR) - Final 02/20/20 14:47 Urine Catheter - Catheter Legionella Antigen - Final 02/20/20 14:47 Urine Catheter - Catheter Streptococcus pneumoniae Antigen (M - Final Laboratory Results 02/21/20 04:44: Diff Path Review Reviewed 02/22/20 06:45: WBC 6.2, RBC 5.06, Hgb 15.5, Hct 47.8, MCV 94.5 H, MCH 30.6, MCHC 32.4, RDW Std Deviation 47.1 H, RDW Coeff of Jovi 13.5, Plt Count 150, MPV 10.6, Immature Gran % (Auto) 1.300 H, Neut % (Auto) 82.3 H, Lymph % (Auto) 10.5 L, Leslie % (Auto) 5.7, Eos % (Auto) 0.0, Baso % (Auto) 0.2, Absolute Neuts (auto) 5.1, Absolute Lymphs (auto) 0.65 L, Nucleated RBC % 0 02/22/20 06:45: Sodium 148 H, Potassium 3.5, Chloride 112 H, Carbon Dioxide 31.0, Anion Gap 5, BUN 32 H, Creatinine 1.42 H, Estim Creat Clear Calc 50.85, Est GFR (MDRD) Af Amer 63, Est GFR (MDRD) Non-Af 52 L, BUN/Creatinine Ratio 22.5 H, Glucose 98, Calcium 8.5, Ferritin 1495 H, Total Bilirubin 0.80, AST 58 H, ALT 36, Alkaline Phosphatase 73, C-React Prot Ext Range 34.30 H, Total Protein 6.7, Albumin 2.9 L, Globulin 3.8, Albumin/Globulin Ratio 0.8 L 02/22/20 06:45: D-Dimer Quant (PE/DVT) 1.23 H* 02/22/20 06:45: Procalcitonin 0.15 H Clinical Impression(s) from Imaging Studies Chest CTA 02/22/20 08:48 IMPRESSION: No evidence of pulmonary embolism. Patchy bilateral infiltrates consistent with the clinical history of Covid 19 pneumonia. Electronically Signed: Chris Li MD at 9:58 EST Tel , Service support , Current Medications Acetaminophen (Acetaminophen 325 Mg Tablet) 650 mg PO Q6H PRN PRN PRN Reason: Pain Score 1-10/Temp > 100.7 F Last Admin: 02/22/20 11:32 Dose: 650 mg Documented by: Amlodipine Besylate (Amlodipine 10 Mg Tablet) 10 mg PO DAILY [facility] Last Admin: 02/22/20 08:09 Dose: 10 mg Documented by: Aspirin (Aspirin 81 Mg Tab.Chew) 81 mg PO DAILY [facility] Last Admin: 02/22/20 08:10 Dose: 81 mg Documented by: Cyclobenzaprine HCl (Cyclobenzaprine Hcl 10 Mg Tablet) 10 mg PO QHS PRN PRN Reason: muscle spasms Last Admin: 02/21/20 21:44 Dose: 10 mg Documented by: Dexamethasone (Dexamethasone 2 Mg Tablet) 6 mg PO DAILY [facility] Last Admin: 02/22/20 08:08 Dose: 6 mg Documented by: Donepezil HCl (Donepezil Hcl 10 Mg Tablet) 20 mg PO DAILY [facility] Last Admin: 02/22/20 08:09 Dose: 20 mg Documented by: Enoxaparin Sodium (Enoxaparin 30 Mg/0.3 Ml Syringe) 30 mg SC BID [facility] Last Admin: 02/22/20 08:11 Dose: 30 mg Documented by: Famotidine (Famotidine 20 Mg Tablet) 20 mg PO BID PRN PRN PRN Reason: gerd Guaifenesin (Guaifenesin 10 Ml Udc (200mg/10ml)) 20 ml PO Q4H PRN PRN PRN Reason: COUGH Last Admin: 02/22/20 03:30 Dose: 20 ml Documented by: Haloperidol Lactate (Haloperidol Lactate 5 Mg/Ml Vial) 2 mg IM Q6H PRN PRN PRN Reason: AGITATION Last Admin: 02/20/20 22:47 Dose: 2 mg Documented by: Hydralazine HCl (Hydralazine 20 Mg/Ml Vial) 10 mg IV Q4H PRN PRN PRN Reason: SBP > 160 Sodium Chloride () 250 mls @ 15 mls/hr IV .[id number] PRN PRN Reason: Saline Flush Sodium Chloride () 250 mls @ 15 mls/hr IV .[id number] PRN PRN Reason: Additional IVPB Infusion Sodium Chloride () 1,000 mls @ 100 mls/hr IV .Q10H [facility] Stop: 02/22/20 18:49 Last Admin: 02/22/20 11:22 Dose: 100 mls/hr Documented by: Memantine (Memantine Hydrochloride 10 Mg Tablet) 10 mg PO BID [facility] Last Admin: 02/22/20 08:10 Dose: 10 mg Documented by: Metoprolol Tartrate (Metoprolol Tartrate 25 Mg Tablet) 25 mg PO DAILY [facility] Last Admin: 02/22/20 08:10 Dose: 25 mg Documented by: Multivitamins (Vitamin B Comp W-C Capsule) 1 capsule PO DAILY [facility] Last Admin: 02/22/20 08:10 Dose: 1 capsule Documented by: Ondansetron HCl (Ondansetron 4 Mg/2 Ml Vial) 4 mg IV Q8H PRN PRN PRN Reason: NAUSEA/VOMITING Pantoprazole Sodium (Pantoprazole Sodium 20 Mg Tablet) 20 mg PO DAILY [facility] Last Admin: 02/22/20 08:08 Dose: 20 mg Documented by: Pravastatin Sodium (Pravastatin 40 Mg Tablet) 40 mg PO DAILY@2200 [facility] Last Admin: 02/21/20 21:44 Dose: 40 mg Documented by: Sodium Chloride (0.9% Saline Lock 10 Ml Syringe) 10 - 40 ml IV UD PRN PRN Reason: SALINE FLUSH Last Admin: 02/22/20 11:22 Dose: 10 ml Documented by: Medical Necessity - Tobacco Use Smoking Status: Never smoker Assessment/Plan All Active Problems Pneumonia (Acute) Dehydration (Acute) SARS (severe acute respiratory syndrome) (Acute) RAUL (acute kidney injury) (Acute) Encephalopathy acute (Acute) COVID-19 (Acute) RECOMMENDATIONS: 1. Continue hydration, consider transition to LR versus p.o. free water 2. Okay to continue with Decadron and Lovenox 3. Probably not a good candidate for convalescent serum or Remdesivir. 4. Walking oximetry prior to discharge 5. We will dynamically stable on room air. Will sign off from a pulmonary perspective IMPRESSIONS: 1. COVID-19 pneumonia Patient did have an infiltrate noted in the right lower lobe, but clinical history is suggestive that patient has been symptomatic for up to 3 weeks. Patient is saturating well on room air at this time. Agree with monitoring off of antibiotics for now. D-dimer is of little help in this scenario in my opinion. Okay to treat symptomatically. Patient has been given Decadron, but will have to watch closely for the development of delirium. This may have been the etiology of patient's decreased p.o. intake given patient's predominance of loss of taste and smell. However, patient is denying those symptoms on my evaluation. 2. Acute kidney injury Barry prerenal etiology secondary to decreased p.o. intake. Recommend gentle hydration, but patient is developing hyperchloremia and hypernatremia secondary to normal saline. Patient may do better with LR or oral free water. Patient may have decreased clearance secondary to renal injury. This would be problematic in the use of Remdesivir. 2. Acute encephalopathy/delirium secondary to #1 and dehydration Unclear baseline. Patient appears to be doing well at this time. Haldol as needed. Would avoid benzodiazepines if possible. Nursing delirium protocol would be appropriate. 4. Advanced age/dementia/hypertension/GERD Complicates care, management, recovery and prognosis. Okay to continue with baseline medications from my perspective. Inpatient E&M: 18540 Subs Hosp L2
--- NOTE | 2020-02-22 14:05 | CM.UR ---
Rounded with JL [place]weigher and charger nurse and Dr. Hein. This patient has dementia. Lives with . Patient is currently a 2 patient assist and they are anticipating need for SNF. Alerted SW. Will need precert. Brandon Sloorio RN, CCM
[2020-02-22 16:16] LABS: Bedside Glucose 166 mg/dL (70-110)
[2020-02-22] MEDS: Pravastatin 40 MG Tablet PO (20:15)
[2020-02-22] MEDS: hydrALAZINE 20 MG/ML Vial 10 MG IV (20:16)
[2020-02-23 02:19] VITALS: BP 151/91; PULSE 74; RESP 18; TEMP 36.8; O2SAT 92
[2020-02-23] MEDS: guaiFENesin 10 ML UDC (200MG/10ML) 20 ML PO (03:36)
[2020-02-23 05:44] VITALS: BP 141/90; PULSE 91; RESP 18; TEMP 37.6; O2SAT 93
[2020-02-23 06:30] LABS: Absolute Neutrophil Count 6.6 X10^3/uL (2.0-7.7); Basophil# 0.02 X10^3/uL; Basophil% 0.2 % (0-1); Hematocrit 49.5 % (40-54); Hemoglobin 16.2 g/dL (13.0-16.5); Lymphocyte % 11.2 % (19-41); Mean Corp Hgb Conc 32.7 g/dL (32-36); Mean Corpuscular Hgb 30.7 pg (27.0-32.0); Mean Corpuscular Volume 93.9 fL (80-94); Mean Platelet Vol. 10.8 fl (6.2-12.0); Monocyte# 0.33 X10^3/uL; Monocyte% 4.1 % (0-10); NRBC Flagged by Analyzer 0 % (0-5); Neutrophil # 6.58 X10^3/uL (2.7-7.7); Neutrophil % 81.9 % (47-70); Platelet Count 175 K/mm3 (150-450); RBC Distribution Width CV 13.5 % (11.6-14.6); RBC Distribution Width SD 46.7 fl (35.1-43.9); Red Blood Count 5.27 M/mm3 (4.6-6.2)
[2020-02-23 06:50] LABS: ALB/GLOB Ratio 0.7 RATIO (0.9-2.4); AST(SGOT) 68 U/L (15-37); Alanine Aminotransfer ALT/SGPT 44 U/L (16-61); Albumin, Serum 3.1 g/dL (3.2-5.0); Alkaline Phosphatase 80 U/L (45-117); Anion Gap 5 (5-15); BUN 28 mg/dL (7-18); BUN/Creat Ratio 20.6 RATIO (10-20); Chloride 109 mmol/L (98-107); Creatinine, Serum 1.36 mg/dL (0.70-1.30); EST Glomerular Filtration Rate 55 mL/min (>60); Est Glom Filt Rate - Afr Amer 66 mL/min (>60); Globulin 4.3 g/dL (2.2-4.2); Glucose 89 mg/dL (74-106); Potassium 3.6 mmol/L (3.5-5.1); Protein, Total 7.4 g/dL (6.4-8.2); Sodium Level 146 mmol/L (136-145)
--- NOTE | 2020-02-23 07:03 | PN_ITS ---
Patient Problems: Active and Suspected Problems Pneumonia (Acute) Dehydration (Acute) SARS (severe acute respiratory syndrome) (Acute) RAUL (acute kidney injury) (Acute) Encephalopathy acute (Acute) COVID-19 (Acute) Subjective: The patient is a 74 y/o M w/ PMHx: HTN, HLD, Dementia unclear type with unclear behavioral disturbance history, GERD, CKD stage III who presents to the [facility] ED on 02/20/20 with history of increased fatigue, malaise, confusion with decreased oral intake as well as cough and mild dyspnea x 3 wk, worse 3-4 days. Patient admitted to the COVID MS unit, negative respiratory viral panel, negative strep and Legionella antigen, ED chest x-ray with no acute cardiopulmonary findings, initial Covid lab panel obtained with noted LDH 351, CRP 50.40, procalcitonin 0.21, troponin less than 0.015, ferritin 977, urinalysis not marked appearing, continue supportive care including q 2 hour turning including prone given no prone bed availability and judicious hydration concurrent RAUL which has since 02/23/2020 continue to resolve, no longer on IV fluids, given upon presentation noted hypoxia with oxygenation lower 90s initiated also on Decadron regimen, currently on room air. Infectious disease and pulmonary medicine consulted and following. Awaiting precertification for SNF. Patient overnight with no acute events per self and per nursing report but patient continues to be confused, currently states he feels okay. Still requiring 2 person assist and has intermittently some irritability. Case management spoke with the 02/22/2020 and given severity of needs patient now plan to long-term facility transition once bed available. Patient denies fevers, chills, nausea, emesis, abdominal pain, chest pain or dyspnea. Objective: Physical Examination: General: awakens to stimuli, alert once awoken but very fatigued, oriented to self, some recent events, remains confused with underlying severe dementia, seated upright in the bedside chair, fatigued appearing, more than day prior. Skin: Mildly flushed color, normal turgor, no icterus, no cyanosis. HEENT: AT/NC, EOMI, PERRLA, mildly dry MM. Lungs: Diminished breath sounds, greater bases, appropriate effort, no rales, ronchi or wheezing. Heart: Regular rate and rhythm; no gallop, rub audible. Abdomen: soft, NTTP, ND, normal BS. Extremities: no cyanosis, clubbing, or edema. Neurological: patient awake, alert, oriented as noted; cognitive function decreased from baseline however patient with underlying dementia therefore decreased baseline; pupils equally reactive to light and accomodation; cranial nerves II-XII grossly normal, moving all 4 extremities, no focal deficits, strength severely global decrease secondary to acute presentation. Psychiatric: affect appears more fatigued than day prior, no acute evidence of depressive or anxiety feelings. Vitals/I&O's: Vital Signs Temp Pulse Resp BP Pulse Ox 99.6 F H 91 18 141/90 H 93 02/23/20 05:44 02/23/20 05:44 02/23/20 05:44 02/23/20 05:44 02/23/20 05:44 Oxygen Delivery Method Room Air Weight: 194 lb Body Mass Index (BMI) 26.3 Intake and Output for Last 24 Hours 02/21/20 02/22/20 02/23/20 23:59 23:59 23:59 Intake Total 2930 / 2930 1100 / 1100 150 / 150 Balance 2930 / 2930 1100 / 1100 150 / 150 Microbiology Past 72 Hours 02/20/20 14:37 Blood Culture (Wb) - Anticubital Right Blood Culture - Preliminary No growth in 48 hours. 02/20/20 14:30 Blood Culture (Wb) - Anticubital Left Blood Culture - Preliminary No growth in 48 hours. 02/21/20 07:20 Mucosa - Nasopharyngeal Respiratory Panel (PCR) - Final 02/20/20 14:47 Urine Catheter - Catheter Legionella Antigen - Final 02/20/20 14:47 Urine Catheter - Catheter Streptococcus pneumoniae Antigen (M - Final Laboratory Results 02/22/20 06:45: WBC 6.2, RBC 5.06, Hgb 15.5, Hct 47.8, MCV 94.5 H, MCH 30.6, MCHC 32.4, RDW Std Deviation 47.1 H, RDW Coeff of Jovi 13.5, Plt Count 150, MPV 10.6, Immature Gran % (Auto) 1.300 H, Neut % (Auto) 82.3 H, Lymph % (Auto) 10.5 L, Dauphin % (Auto) 5.7, Eos % (Auto) 0.0, Baso % (Auto) 0.2, Absolute Neuts (auto) 5.1, Absolute Lymphs (auto) 0.65 L, Nucleated RBC % 0 02/22/20 06:45: Sodium 148 H, Potassium 3.5, Chloride 112 H, Carbon Dioxide 31.0, Anion Gap 5, BUN 32 H, Creatinine 1.42 H, Estim Creat Clear Calc 50.85, Est GFR (MDRD) Af Amer 63, Est GFR (MDRD) Non-Af 52 L, BUN/Creatinine Ratio 22.5 H, Glucose 98, Calcium 8.5, Ferritin 1495 H, Total Bilirubin 0.80, AST 58 H, ALT 36, Alkaline Phosphatase 73, C-React Prot Ext Range 34.30 H, Total Protein 6.7, Albumin 2.9 L, Globulin 3.8, Albumin/Globulin Ratio 0.8 L 02/22/20 06:45: D-Dimer Quant (PE/DVT) 1.23 H* 02/22/20 06:45: Procalcitonin 0.15 H 02/22/20 12:37: POC Glucose 166 H 02/23/20 05:05: WBC 8.0, RBC 5.27, Hgb 16.2, Hct 49.5, MCV 93.9, MCH 30.7, MCHC 32.7, RDW Std Deviation 46.7 H, RDW Coeff of Jovi 13.5, Plt Count 175, MPV 10.8, Immature Gran % (Auto) 2.600 H, Neut % (Auto) 81.9 H, Lymph % (Auto) 11.2 L, Dauphin % (Auto) 4.1, Eos % (Auto) 0.0, Baso % (Auto) 0.2, Absolute Neuts (auto) 6.6, Absolute Lymphs (auto) 0.90, Nucleated RBC % 0 02/23/20 05:05: Sodium 146 H, Potassium 3.6, Chloride 109 H, Carbon Dioxide 32.0, Anion Gap 5, BUN 28 H, Creatinine 1.36 H, Estim Creat Clear Calc 53.10, Est GFR (MDRD) Af Amer 66, Est GFR (MDRD) Non-Af 55 L, BUN/Creatinine Ratio 20.6 H, Glucose 89, Calcium 9.0, Total Bilirubin 0.80, AST 68 H, ALT 44, Alkaline Phosphatase 80, Total Protein 7.4, Albumin 3.1 L, Globulin 4.3 H, Albumin/Globulin Ratio 0.7 L Current Medications Acetaminophen (Acetaminophen 325 Mg Tablet) 650 mg PO Q6H PRN PRN PRN Reason: Pain Score 1-10/Temp > 100.7 F Last Admin: 02/22/20 11:32 Dose: 650 mg Documented by: Amlodipine Besylate (Amlodipine 10 Mg Tablet) 10 mg PO DAILY [facility] Last Admin: 02/22/20 08:09 Dose: 10 mg Documented by: Aspirin (Aspirin 81 Mg Tab.Chew) 81 mg PO DAILY [facility] Last Admin: 02/22/20 08:10 Dose: 81 mg Documented by: Cyclobenzaprine HCl (Cyclobenzaprine Hcl 10 Mg Tablet) 10 mg PO QHS PRN PRN Reason: muscle spasms Last Admin: 02/21/20 21:44 Dose: 10 mg Documented by: Dexamethasone (Dexamethasone 2 Mg Tablet) 6 mg PO DAILY [facility] Last Admin: 02/22/20 08:08 Dose: 6 mg Documented by: Donepezil HCl (Donepezil Hcl 10 Mg Tablet) 20 mg PO DAILY [facility] Last Admin: 02/22/20 08:09 Dose: 20 mg Documented by: Enoxaparin Sodium (Enoxaparin 30 Mg/0.3 Ml Syringe) 30 mg SC BID [facility] Last Admin: 02/22/20 20:20 Dose: 30 mg Documented by: Famotidine (Famotidine 20 Mg Tablet) 20 mg PO BID PRN PRN PRN Reason: gerd Guaifenesin (Guaifenesin 10 Ml Udc (200mg/10ml)) 20 ml PO Q4H PRN PRN PRN Reason: COUGH Last Admin: 02/23/20 03:36 Dose: 20 ml Documented by: Haloperidol Lactate (Haloperidol Lactate 5 Mg/Ml Vial) 2 mg IM Q6H PRN PRN PRN Reason: AGITATION Last Admin: 02/20/20 22:47 Dose: 2 mg Documented by: Hydralazine HCl (Hydralazine 20 Mg/Ml Vial) 10 mg IV Q4H PRN PRN PRN Reason: SBP > 160 Last Admin: 02/22/20 20:16 Dose: 10 mg Documented by: Sodium Chloride () 250 mls @ 15 mls/hr IV .[id number] PRN PRN Reason: Saline Flush Sodium Chloride () 250 mls @ 15 mls/hr IV .[id number] PRN PRN Reason: Additional IVPB Infusion Memantine (Memantine Hydrochloride 10 Mg Tablet) 10 mg PO BID [facility] Last Admin: 02/22/20 20:15 Dose: 10 mg Documented by: Metoprolol Tartrate (Metoprolol Tartrate 25 Mg Tablet) 25 mg PO DAILY [facility] Last Admin: 02/22/20 08:10 Dose: 25 mg Documented by: Multivitamins (Vitamin B Comp W-C Capsule) 1 capsule PO DAILY [facility] Last Admin: 02/22/20 08:10 Dose: 1 capsule Documented by: Ondansetron HCl (Ondansetron 4 Mg/2 Ml Vial) 4 mg IV Q8H PRN PRN PRN Reason: NAUSEA/VOMITING Pantoprazole Sodium (Pantoprazole Sodium 20 Mg Tablet) 20 mg PO DAILY [facility] Last Admin: 02/22/20 08:08 Dose: 20 mg Documented by: Pravastatin Sodium (Pravastatin 40 Mg Tablet) 40 mg PO DAILY@2200 [facility] Last Admin: 02/22/20 20:15 Dose: 40 mg Documented by: Sodium Chloride (0.9% Saline Lock 10 Ml Syringe) 10 - 40 ml IV UD PRN PRN Reason: SALINE FLUSH Last Admin: 02/22/20 20:18 Dose: 10 ml Documented by: STROKE Vital Signs/Narrative: Vital Signs Temp Pulse Resp BP Pulse Ox 02/23/20 05:44 99.6 F H 91 18 141/90 H 93 Medical Necessity - Tobacco Use Smoking Status: Never smoker Assessment/Plan All Active Problems Pneumonia (Acute) Dehydration (Acute) SARS (severe acute respiratory syndrome) (Acute) RAUL (acute kidney injury) (Acute) Encephalopathy acute (Acute) COVID-19 (Acute) The patient is a 74 y/o M w/ PMHx: HTN, HLD, Dementia unclear type with unclear behavioral disturbance history, GERD, CKD stage III who presents to the [facility] ED on 02/20/20 with history of increased fatigue, malaise, confusion with decreased oral intake as well as cough and mild dyspnea x 3 wk, worse 3-4 days. 1. Acute Metabolic Encephalopathy secondary to Acute Viral Syndrome, COVID-19 as well as #2: Patient admitted to the COVID MS unit, will maintain on oxygen with wean as tolerated to room air, encourage HOB, IS parameters, negative respiratory viral panel, negative strep and Legionella antigen, blood culture x2 pending per ED, ED chest x-ray with no acute cardiopulmonary findings, initial Covid lab panel obtained with noted LDH 351, CRP 50.40, procalcitonin 0.21, troponin less than 0.015, ferritin 977, urinalysis not marked appearing, continue supportive care including q 2 hour turning including prone given no prone bed availability and judicious hydration concurrent RAUL which has since 02/23/2020 continue to resolve, no longer on IV fluids, given upon presentation noted hypoxia with oxygenation lower 90s initiated also on Decadron regimen, currently on room air. Infectious disease and pulmonary medicine consulted and following. Patient remains extremely debilitated, increased confusion, unable to return to home awaiting long-term facility placement precertification. 2. Acute kidney injury on CKD stage III: Secondary to acute presentation as noted #1. Admission BUN/Cr 57/2.25, prior baseline creatinine noted to be 1.4, judiciously hydrated with repeat 02/23/2020 BUN/creatinine 28/1.36, continued improvement. 3. Dementia, unclear type with unclear behavioral disturbance history: Continue home Aricept and Namenda regimen, complicates presentation, maintain on fall precautions. Patient does have some irritability but behaviorally has not been severe, if worsens may consider low-dose Seroquel. 4. Hypertension: Continue home regimen including Norvasc, metoprolol with hold parameters, PRN hydralazine. 5. Hyperlipidemia: Continue home statin regimen. 6. GERD: We will maintain on Protonix. 7. DVT prophylaxis: SCDs, Lovenox. 8. CODE STATUS: Full code. Attempted to contact to give update on current status and plan of care; however, mailbox was full and there was no answer. Inpatient E&M: [id number] Subs Hosp L2
[2020-02-23] MEDS: Acetaminophen 325 MG Tablet 650 MG PO (07:48)
[2020-02-23] MEDS: Donepezil HCl 10 MG Tablet 20 MG PO (07:49)
[2020-02-23] MEDS: amLODIPine 10 MG Tablet PO (07:49)
[2020-02-23] MEDS: Aspirin 81 MG TAB.CHEW PO (07:49)
[2020-02-23] MEDS: Memantine Hydrochloride 10 MG Tablet PO ×2 (07:49→21:33)
[2020-02-23 07:50] VITALS: PULSE 81
[2020-02-23] MEDS: Metoprolol Tartrate 25 MG Tablet PO (07:50)
[2020-02-23] MEDS: Pantoprazole Sodium 20 MG Tablet PO (07:50)
[2020-02-23] MEDS: dexAMETHasone 2 MG TABLET 6 MG PO (07:50)
[2020-02-23] MEDS: Vitamin B Comp W-C Capsule 1 CAP PO (07:50)
[2020-02-23] MEDS: Enoxaparin 30 MG/0.3 ML Syringe SC ×2 (07:51→21:32)
[2020-02-23 07:58] VITALS: BP 169/91; PULSE 81; RESP 16; TEMP 38; O2SAT 96
--- NOTE | 2020-02-23 11:31 | NURSING ---
attempted to call with update but no answer.
--- NOTE | 2020-02-23 12:41 | NURSING ---
pt refused to eat lunch
[2020-02-23 13:33] VITALS: BP 149/88; PULSE 63; RESP 16; TEMP 37.3; O2SAT 92
[2020-02-23 21:30] VITALS: BP 149/93; PULSE 71; RESP 18; TEMP 36.6; O2SAT 96
[2020-02-23] MEDS: Pravastatin 40 MG Tablet PO (21:33)
[2020-02-23] MEDS: MELATONIN 3 MG TABLET PO (21:33)
[2020-02-24] VITALS (8 sets, daily range): BP systolic 130–164; BP diastolic 77–89; PULSE 65–82; RESP 18–22; TEMP 36.7–37.5; O2SAT 87–98
--- NOTE | 2020-02-24 07:56 | PCM.PN.HOSP ---
Patient Problems: Active and Suspected Problems Pneumonia (Acute) Dehydration (Acute) SARS (severe acute respiratory syndrome) (Acute) RAUL (acute kidney injury) (Acute) Encephalopathy acute (Acute) COVID-19 (Acute) Reason for Visit: acute metabolic encephalopathy secondary to acute COVID-19 Subjective: Patient is a 74-year-old gentleman with underlying history of dementia admitted with increasing fatigue malaise and confusion and assessment of acute metabolic encephalopathy secondary to acute COVID-19 admitted to a monitored bed for subsequent management Objective: GENERAL: Appears delirious HEENT: Atraumatic; EYES; Anicteric, Normal Conjunctiva NECK; supple, normal thyroid, RESPIRATORY: Diminished to auscultation CARDIOVASCULAR: Regular S1 S2, GI: soft, normoactive bowel sounds, : No Renal angle tenderness; EXTREMITIES: No edema, no clubbing, MUSCULOSKELETAL: no muscle waisting NEURO: Awake; no lateralizing signs. SKIN: No Rash PSYCH; Flat affect Vitals/I&O's: Vital Signs Temp Pulse Resp BP Pulse Ox 98.1 F 74 18 141/84 H 95 02/24/20 02:23 02/24/20 02:23 02/24/20 02:23 02/24/20 02:23 02/24/20 02:23 Oxygen Delivery Method Room Air Weight: 87.997 kg Body Mass Index (BMI) 26.3 Intake and Output for Last 24 Hours 02/22/20 02/23/20 02/24/20 23:59 23:59 23:59 Intake Total 1100 / 1100 620 / 620 250 / 250 Balance 1100 / 1100 620 / 620 250 / 250 Microbiology Past 72 Hours 02/20/20 14:37 Blood Culture (Wb) - Anticubital Right Blood Culture - Preliminary No growth in 48 hours. 02/20/20 14:30 Blood Culture (Wb) - Anticubital Left Blood Culture - Preliminary No growth in 48 hours. 02/21/20 07:20 Mucosa - Nasopharyngeal Respiratory Panel (PCR) - Final Current Medications Acetaminophen (Acetaminophen 325 Mg Tablet) 650 mg PO Q6H PRN PRN PRN Reason: Pain Score 1-10/Temp > 100.7 F Last Admin: 02/23/20 07:48 Dose: 650 mg Documented by: Amlodipine Besylate (Amlodipine 10 Mg Tablet) 10 mg PO DAILY [facility] Last Admin: 02/23/20 07:49 Dose: 10 mg Documented by: Aspirin (Aspirin 81 Mg Tab.Chew) 81 mg PO DAILY [facility] Last Admin: 02/23/20 07:49 Dose: 81 mg Documented by: Cyclobenzaprine HCl (Cyclobenzaprine Hcl 10 Mg Tablet) 10 mg PO QHS PRN PRN Reason: muscle spasms Last Admin: 02/21/20 21:44 Dose: 10 mg Documented by: Dexamethasone (Dexamethasone 2 Mg Tablet) 6 mg PO DAILY [facility] Last Admin: 02/23/20 07:50 Dose: 6 mg Documented by: Donepezil HCl (Donepezil Hcl 10 Mg Tablet) 20 mg PO DAILY [facility] Last Admin: 02/23/20 07:49 Dose: 20 mg Documented by: Enoxaparin Sodium (Enoxaparin 30 Mg/0.3 Ml Syringe) 30 mg SC BID [facility] Last Admin: 02/23/20 21:32 Dose: 30 mg Documented by: Famotidine (Famotidine 20 Mg Tablet) 20 mg PO BID PRN PRN PRN Reason: gerd Guaifenesin (Guaifenesin 10 Ml Udc (200mg/10ml)) 20 ml PO Q4H PRN PRN PRN Reason: COUGH Last Admin: 02/23/20 03:36 Dose: 20 ml Documented by: Haloperidol Lactate (Haloperidol Lactate 5 Mg/Ml Vial) 2 mg IM Q6H PRN PRN PRN Reason: AGITATION Last Admin: 02/20/20 22:47 Dose: 2 mg Documented by: Hydralazine HCl (Hydralazine 20 Mg/Ml Vial) 10 mg IV Q4H PRN PRN PRN Reason: SBP > 160 Last Admin: 02/22/20 20:16 Dose: 10 mg Documented by: Sodium Chloride () 250 mls @ 15 mls/hr IV .[id number] PRN PRN Reason: Saline Flush Sodium Chloride () 250 mls @ 15 mls/hr IV .[id number] PRN PRN Reason: Additional IVPB Infusion Melatonin (Melatonin 3 Mg Tablet) 3 mg PO QHS [facility] Last Admin: 02/23/20 21:33 Dose: 3 mg Documented by: Memantine (Memantine Hydrochloride 10 Mg Tablet) 10 mg PO BID [facility] Last Admin: 02/23/20 21:33 Dose: 10 mg Documented by: Metoprolol Tartrate (Metoprolol Tartrate 25 Mg Tablet) 25 mg PO DAILY [facility] Last Admin: 02/23/20 07:50 Dose: 25 mg Documented by: Multivitamins (Vitamin B Comp W-C Capsule) 1 capsule PO DAILY [facility] Last Admin: 02/23/20 07:50 Dose: 1 capsule Documented by: Ondansetron HCl (Ondansetron 4 Mg/2 Ml Vial) 4 mg IV Q8H PRN PRN PRN Reason: NAUSEA/VOMITING Pantoprazole Sodium (Pantoprazole Sodium 20 Mg Tablet) 20 mg PO DAILY [facility] Last Admin: 02/23/20 07:50 Dose: 20 mg Documented by: Pravastatin Sodium (Pravastatin 40 Mg Tablet) 40 mg PO DAILY@2200 [facility] Last Admin: 02/23/20 21:33 Dose: 40 mg Documented by: Sodium Chloride (0.9% Saline Lock 10 Ml Syringe) 10 - 40 ml IV UD PRN PRN Reason: SALINE FLUSH Last Admin: 02/22/20 20:18 Dose: 10 ml Documented by: Medical Necessity - Tobacco Use Smoking Status: Never smoker Assessment/Plan All Active Problems Pneumonia (Acute) Dehydration (Acute) SARS (severe acute respiratory syndrome) (Acute) RAUL (acute kidney injury) (Acute) Encephalopathy acute (Acute) COVID-19 (Acute) Patient is a 74-year-old gentleman with underlying history of dementia admitted with increasing fatigue malaise and confusion and assessment of acute metabolic encephalopathy secondary to acute COVID-19 admitted to a monitored bed for subsequent management 1. Acute metabolic encephalopathy secondary to acute COVID-19 ?Patient managed with Decadron supplemental oxygen. Patient was deemed not a candidate for convalescent plasma and remdesivir 2. Dementia with behavioral agitation ?Pressure stated by patient COVID-19. Patient is on Aricept and Namenda 3. Acute kidney injury ?Managed with IV fluids 4. Chronic kidney disease stage III ?Kidney function back to baseline 5. Hypertension - Blood pressure controlled, home medications continued with dose adjustment as needed 6. Dyslipidemia -Patient is on statin therapy, continued at home dose 7. GERD ?On PPI 8. DVT prophylaxis ?Lovenox 9. Hypernatremia ?Patient started on D5 half-normal saline with monitoring of electrolytes Inpatient E&M: 19990 [facility] L3
[2020-02-24 08:27] LABS: Absolute Lymphocyte Count 0.83 X10^3/uL (0.83-4.51); Absolute Neutrophil Count 7.5 X10^3/uL (2.0-7.7); Basophil# 0.03 X10^3/uL; Basophil% 0.3 % (0-1); Eosinophil# 0.04 X10^3/uL; Eosinophils% 0.4 % (0-5); Hemoglobin 14.8 g/dL (13.0-16.5); Lymphocyte # 0.83 X10^3/ul (4.0); Lymphocyte % 9.1 % (19-41); Mean Corp Hgb Conc 32.2 g/dL (32-36); Mean Corpuscular Volume 93.3 fL (80-94); Mean Platelet Vol. 10.6 fl (6.2-12.0); Monocyte# 0.42 X10^3/uL; Monocyte% 4.6 % (0-10); NRBC Flagged by Analyzer 0 % (0-5); Neutrophil # 7.52 X10^3/uL (2.7-7.7); Neutrophil % 82.5 % (47-70); Platelet Count 185 K/mm3 (150-450); RBC Distribution Width CV 13.6 % (11.6-14.6); Red Blood Count 4.93 M/mm3 (4.6-6.2); White Blood Count 9.1 K/mm3 (4.4-11.0)
[2020-02-24 08:55] LABS: ALB/GLOB Ratio 0.9 RATIO (0.9-2.4); AST(SGOT) 59 U/L (15-37); Alanine Aminotransfer ALT/SGPT 43 U/L (16-61); Albumin, Serum 2.8 g/dL (3.2-5.0); Alkaline Phosphatase 73 U/L (45-117); Anion Gap 9 (5-15); BUN 29 mg/dL (7-18); BUN/Creat Ratio 21.5 RATIO (10-20); Calcium,Total 8.3 mg/dL (8.5-10.1); Chloride 110 mmol/L (98-107); Creatinine, Serum 1.35 mg/dL (0.70-1.30); EST Glomerular Filtration Rate 55 mL/min (>60); Est Glom Filt Rate - Afr Amer 67 mL/min (>60); Estimated Creatinine Clearance 53.49 ml/min; Globulin 3.2 g/dL (2.2-4.2); Glucose 117 mg/dL (74-106); Potassium 3.6 mmol/L (3.5-5.1); Sodium Level 149 mmol/L (136-145)
[2020-02-24] MEDS: Metoprolol Tartrate 25 MG Tablet PO (10:27)
[2020-02-24] MEDS: Pantoprazole Sodium 20 MG Tablet PO (10:27)
[2020-02-24] MEDS: Donepezil HCl 10 MG Tablet 20 MG PO (10:27)
[2020-02-24] MEDS: Aspirin 81 MG TAB.CHEW PO (10:27)
[2020-02-24] MEDS: Memantine Hydrochloride 10 MG Tablet PO ×2 (10:27→21:23)
[2020-02-24] MEDS: dexAMETHasone 2 MG TABLET 6 MG PO (10:27)
[2020-02-24] MEDS: amLODIPine 10 MG Tablet PO (10:27)
[2020-02-24] MEDS: Enoxaparin 30 MG/0.3 ML Syringe SC ×2 (10:28→21:22)
[2020-02-24] MEDS: Vitamin B Comp W-C Capsule 1 CAP PO (10:28)
[2020-02-24] MEDS: 0.45% Normal Saline 1,000 ML 75 ML IV (11:32)
--- NOTE | 2020-02-24 12:29 | CASEMGMT ---
Addendum entered by Vanessa Pierre 02/24/20 14:10: SW spoke w/Ashli at [facility], she asked for updates regarding pt's behaviors and diet. SW faxed nursing notes along with window shade cloth sewer information and latest PT/OT notes. DALE Valverde Addendum entered by Vanessa Pierre 02/24/20 13:03: SW called Ashli at [facility], they will check pt's insurance when referral received. Referral faxed to [facility]. DALE Valverde Original Note: SW called , spoke w/her about discharge plan. SW explained to pt is more weak than before and spoke to her about what she would like to do. Initially she seemed willing for SW to send a referral to SNF, but knowing that there are no near facilities, does not want him going to a facility far away, she wants him to go home. She asked about extra help at home. SW explained can refer pt for home health but that the services are limited, asked her about paying for extra help if needed; vague about this being a possibility. She states she has two children and two sisters nearby that may be able to help. SW explained to that with pt being COVID+, anyone who cares for him would have to quarantine. asked if SW spoke w/pt about it. SW explained was this SW's understanding she makes decisions for pt as he has memory difficulties. She states that he does, but asked for SW to ask him if he wants to come home to her as they have not seen each other in a few days. SW gently explained to that of course pt will want to come home to her, but that he may not be able to manage at home. SW asked to speak w/children directly, she states she will speak with them. She states they are working however and so cannot talk to them until later. SW explained will see how pt does with therapy today and will let her know. She also wants to speak w/pt--SW asked RN to see if they can call when he is in the room, he will try. also wants this SW to speak w/pt, SW did call into the room but pt did not answer the phone. SW just spoke w/PT and OT who were just in the room. Pt needed the assist of two people. SW called the back, spoke w/her about how pt did in therapy, that he needs the assist of two people. She states she doesn't know that her children can help. We reviewed options again for SNF and reluctantly agreed to a referral be sent to [facility]. SW will send referral to [facility] shortly. DALE Valverde
--- NOTE | 2020-02-24 13:01 | PN.ID_ITS ---
Patient Problems: Active and Suspected Problems Pneumonia (Acute) Dehydration (Acute) SARS (severe acute respiratory syndrome) (Acute) RAUL (acute kidney injury) (Acute) Encephalopathy acute (Acute) COVID-19 (Acute) Subjective: No fever, no events overnight. - Physical Exam Vitals/I&O's: Vital Signs Temp Pulse Resp BP Pulse Ox 99.5 F H 82 18 164/89 H 91 02/24/20 10:17 02/24/20 10:27 02/24/20 10:17 02/24/20 10:17 02/24/20 10:17 Oxygen Delivery Method Room Air Weight: 87.997 kg Body Mass Index (BMI) 26.3 Intake and Output for Last 24 Hours 02/22/20 02/23/20 02/24/20 23:59 23:59 23:59 Intake Total 1100 / 1100 620 / 620 250 / 250 Balance 1100 / 1100 620 / 620 250 / 250 General: No apparent distress, Lethargic Lungs: Diminished Cardiovascular: Regular rate, Regular Rhythm Abdomen: Soft, Non Tender, Non-Distended Skin: No rashes Microbiology Past 72 Hours 02/20/20 14:37 Blood Culture (Wb) - Anticubital Right Blood Culture - Preliminary No growth in 48 hours. 02/20/20 14:30 Blood Culture (Wb) - Anticubital Left Blood Culture - Preliminary No growth in 48 hours. 02/21/20 07:20 Mucosa - Nasopharyngeal Respiratory Panel (PCR) - Final Laboratory Results 02/24/20 08:16: WBC 9.1, RBC 4.93, Hgb 14.8, Hct 46.0, MCV 93.3, MCH 30.0, MCHC 32.2, RDW Std Deviation 47.0 H, RDW Coeff of Jovi 13.6, Plt Count 185, MPV 10.6, Immature Gran % (Auto) 3.100 H, Neut % (Auto) 82.5 H, Lymph % (Auto) 9.1 L, [place] % (Auto) 4.6, Eos % (Auto) 0.4, Baso % (Auto) 0.3, Absolute Neuts (auto) 7.5, Absolute Lymphs (auto) 0.83, Nucleated RBC % 0 02/24/20 08:16: Sodium 149 H, Potassium 3.6, Chloride 110 H, Carbon Dioxide 30.0, Anion Gap 9, BUN 29 H, Creatinine 1.35 H, Estim Creat Clear Calc 53.49, Est GFR (MDRD) Af Amer 67, Est GFR (MDRD) Non-Af 55 L, BUN/Creatinine Ratio 21.5 H, Glucose 117 H, Calcium 8.3 L, Total Bilirubin 0.80, AST 59 H, ALT 43, Alkaline Phosphatase 73, Total Protein 6.0 L, Albumin 2.8 L, Globulin 3.2, Albumin/Globulin Ratio 0.9 Current Medications Acetaminophen (Acetaminophen 325 Mg Tablet) 650 mg PO Q6H PRN PRN PRN Reason: Pain Score 1-10/Temp > 100.7 F Last Admin: 02/23/20 07:48 Dose: 650 mg Documented by: Amlodipine Besylate (Amlodipine 10 Mg Tablet) 10 mg PO DAILY [facility] Last Admin: 02/24/20 10:27 Dose: 10 mg Documented by: Aspirin (Aspirin 81 Mg Tab.Chew) 81 mg PO DAILY [facility] Last Admin: 02/24/20 10:27 Dose: 81 mg Documented by: Cyclobenzaprine HCl (Cyclobenzaprine Hcl 10 Mg Tablet) 10 mg PO QHS PRN PRN Reason: muscle spasms Last Admin: 02/21/20 21:44 Dose: 10 mg Documented by: Dexamethasone (Dexamethasone 2 Mg Tablet) 6 mg PO DAILY [facility] Last Admin: 02/24/20 10:27 Dose: 6 mg Documented by: Donepezil HCl (Donepezil Hcl 10 Mg Tablet) 20 mg PO DAILY [facility] Last Admin: 02/24/20 10:27 Dose: 20 mg Documented by: Enoxaparin Sodium (Enoxaparin 30 Mg/0.3 Ml Syringe) 30 mg SC BID [facility] Last Admin: 02/24/20 10:28 Dose: 30 mg Documented by: Famotidine (Famotidine 20 Mg Tablet) 20 mg PO BID PRN PRN PRN Reason: gerd Guaifenesin (Guaifenesin 10 Ml Udc (200mg/10ml)) 20 ml PO Q4H PRN PRN PRN Reason: COUGH Last Admin: 02/23/20 03:36 Dose: 20 ml Documented by: Haloperidol Lactate (Haloperidol Lactate 5 Mg/Ml Vial) 2 mg IM Q6H PRN PRN PRN Reason: AGITATION Last Admin: 02/20/20 22:47 Dose: 2 mg Documented by: Hydralazine HCl (Hydralazine 20 Mg/Ml Vial) 10 mg IV Q4H PRN PRN PRN Reason: SBP > 160 Last Admin: 02/22/20 20:16 Dose: 10 mg Documented by: Sodium Chloride () 1,000 mls @ 75 mls/hr IV .[id number] [facility] Last Admin: 02/24/20 11:32 Dose: 75 mls/hr Documented by: Melatonin (Melatonin 3 Mg Tablet) 3 mg PO QHS [facility] Last Admin: 02/23/20 21:33 Dose: 3 mg Documented by: Memantine (Memantine Hydrochloride 10 Mg Tablet) 10 mg PO BID [facility] Last Admin: 02/24/20 10:27 Dose: 10 mg Documented by: Metoprolol Tartrate (Metoprolol Tartrate 25 Mg Tablet) 25 mg PO DAILY [facility] Last Admin: 02/24/20 10:27 Dose: 25 mg Documented by: Multivitamins (Vitamin B Comp W-C Capsule) 1 capsule PO DAILY [facility] Last Admin: 02/24/20 10:28 Dose: 1 capsule Documented by: Ondansetron HCl (Ondansetron 4 Mg/2 Ml Vial) 4 mg IV Q8H PRN PRN PRN Reason: NAUSEA/VOMITING Pantoprazole Sodium (Pantoprazole Sodium 20 Mg Tablet) 20 mg PO DAILY [facility] Last Admin: 02/24/20 10:27 Dose: 20 mg Documented by: Pravastatin Sodium (Pravastatin 40 Mg Tablet) 40 mg PO DAILY@2200 [facility] Last Admin: 02/23/20 21:33 Dose: 40 mg Documented by: Sodium Chloride (0.9% Saline Lock 10 Ml Syringe) 10 - 40 ml IV UD PRN PRN Reason: SALINE FLUSH Last Admin: 02/22/20 20:18 Dose: 10 ml Documented by: Medical Necessity - Tobacco Use Smoking Status: Never smoker Route of nutrition/ use of supplements: [] Nutritional Intake: [] IV Site: [] Connell Catheter: [] - Assessment/Plan Antibiotics: [] Assessment/Plan: [] Active and Suspected Problems Pneumonia (Acute) Dehydration (Acute) SARS (severe acute respiratory syndrome) (Acute) RAUL (acute kidney injury) (Acute) Encephalopathy acute (Acute) covid, encephalopathy, RAUL - reportedly sx for past 3 weeks prior to admit. On dex, on RA. Ok for discharge off of dex once placement is arranged. Will follow as needed
--- NOTE | 2020-02-24 14:52 | CASEMGMT ---
SW heard back from [facility] and they cannot take pt as they do not take [employer] insurance. SW attempted to call , went to voicemail and voicemail is full. SW will try again shortly. DALE Valverde
--- NOTE | 2020-02-24 15:44 | CASEMGMT ---
SW reviewed online the list of nursing homes that take [employer] and called several. So far, the following facilities have all said they are not taking COVID+ pts, are full, or would take if pt was 14 days out from diagnosis 1. [facility] 2. [facility] 3. [facility] 4. [facility] 5. [facility] [place] 6. [facility] 7. [facility] 8. [facility] 9. [facility] 10. [facility] 11. [facility](would take 10-14 days out from positive test) 12. [facility](may consider but no space available) 13. [facility](would take 14 days out from positive test) 14. [facility] 15. [facility] 16. [facility] 17. [facility] 18. [facility] 19. [facility] 20. [facility] 21. [facility] SW called [facility], they say they do take [employer] and will review referral. SW called , explained that pt cannot go to [facility] due to insurance. SW explained called the closer facilities and none of them can take patients with COVID or are full. [facility] that could take pt. agreeable to referral being sent. SW faxed referral, will follow up in the morning. DALE Valverde
[2020-02-24] MEDS: MELATONIN 3 MG TABLET PO (21:22)
[2020-02-24] MEDS: Pravastatin 40 MG Tablet PO (21:23)
[2020-02-25] VITALS (10 sets, daily range): BP systolic 146–154; BP diastolic 72–90; PULSE 70–83; RESP 18–24; TEMP 36.6–37.3; O2SAT 3–95
[2020-02-25] MEDS: 0.45% Normal Saline 1,000 ML 75 ML IV ×2 (00:26→13:19)
[2020-02-25 07:18] LABS: Absolute Lymphocyte Count 0.58 X10^3/uL (0.83-4.51); Absolute Neutrophil Count 8.4 X10^3/uL (2.0-7.7); Basophil# 0.04 X10^3/uL; Basophil% 0.4 % (0-1); Hematocrit 49.3 % (40-54); Hemoglobin 15.9 g/dL (13.0-16.5); Lymphocyte # 0.58 X10^3/ul (4.0); Mean Corp Hgb Conc 32.3 g/dL (32-36); Mean Corpuscular Hgb 30.3 pg (27.0-32.0); Mean Corpuscular Volume 94.1 fL (80-94); Mean Platelet Vol. 10.2 fl (6.2-12.0); Monocyte# 0.33 X10^3/uL; Monocyte% 3.4 % (0-10); NRBC Flagged by Analyzer 0 % (0-5); Neutrophil # 8.44 X10^3/uL (2.7-7.7); Neutrophil % 86.6 % (47-70); POSITIVE DIFFERENTIAL YES; Platelet Count 213 K/mm3 (150-450); RBC Distribution Width CV 13.6 % (11.6-14.6); RBC Distribution Width SD 47.5 fl (35.1-43.9); Red Blood Count 5.24 M/mm3 (4.6-6.2); White Blood Count 9.7 K/mm3 (4.4-11.0)
--- NOTE | 2020-02-25 07:20 | PN_ITS ---
Patient Problems: Active and Suspected Problems Pneumonia (Acute) Dehydration (Acute) SARS (severe acute respiratory syndrome) (Acute) RAUL (acute kidney injury) (Acute) Encephalopathy acute (Acute) COVID-19 (Acute) Reason for Visit: acute metabolic encephalopathy secondary to acute COVID-19 Subjective: Patient is a 74-year-old gentleman with underlying history of dementia admitted with increasing fatigue malaise and confusion and assessment of acute metabolic encephalopathy secondary to acute COVID-19 admitted to a monitored bed for subsequent management 02/25/2020; had a discussion with patient's who did agree to patient being discharged to a fdc facility -Patient sodium level still remains elevated at 147 is on half-normal saline with monitoring of electrolytes Objective: GENERAL: Appears delirious HEENT: Atraumatic; EYES; Anicteric, Normal Conjunctiva NECK; supple, normal thyroid, RESPIRATORY: Diminished to auscultation CARDIOVASCULAR: Regular S1 S2, GI: soft, normoactive bowel sounds, : No Renal angle tenderness; EXTREMITIES: No edema, no clubbing, MUSCULOSKELETAL: no muscle waisting NEURO: Awake; no lateralizing signs. SKIN: No Rash PSYCH; Flat affect Vitals/I&O's: Vital Signs Temp Pulse Resp BP Pulse Ox 98.3 F 83 24 H 154/84 H 94 02/25/20 07:01 02/25/20 07:01 02/25/20 07:01 02/25/20 07:01 02/25/20 07:01 Oxygen Flow Rate (L/min) 3 Oxygen Delivery Method Nasal Cannula Weight: 87.997 kg Body Mass Index (BMI) 26.3 Intake and Output for Last 24 Hours 02/23/20 02/24/20 02/25/20 23:59 23:59 23:59 Intake Total 620 / 620 250 / 250 967.5 / 967.5 Balance 620 / 620 250 / 250 967.5 / 967.5 Microbiology Past 72 Hours 02/20/20 14:37 Blood Culture (Wb) - Anticubital Right Blood Culture - Preliminary No growth in 48 hours. 02/20/20 14:30 Blood Culture (Wb) - Anticubital Left Blood Culture - Preliminary No growth in 48 hours. Laboratory Results 02/24/20 08:16: WBC 9.1, RBC 4.93, Hgb 14.8, Hct 46.0, MCV 93.3, MCH 30.0, MCHC 32.2, RDW Std Deviation 47.0 H, RDW Coeff of Jovi 13.6, Plt Count 185, MPV 10.6, Immature Gran % (Auto) 3.100 H, Neut % (Auto) 82.5 H, Lymph % (Auto) 9.1 L, [place] % (Auto) 4.6, Eos % (Auto) 0.4, Baso % (Auto) 0.3, Absolute Neuts (auto) 7.5, Absolute Lymphs (auto) 0.83, Nucleated RBC % 0 02/24/20 08:16: Sodium 149 H, Potassium 3.6, Chloride 110 H, Carbon Dioxide 30.0, Anion Gap 9, BUN 29 H, Creatinine 1.35 H, Estim Creat Clear Calc 53.49, Est GFR (MDRD) Af Amer 67, Est GFR (MDRD) Non-Af 55 L, BUN/Creatinine Ratio 21.5 H, Glucose 117 H, Calcium 8.3 L, Total Bilirubin 0.80, AST 59 H, ALT 43, Alkaline Phosphatase 73, Total Protein 6.0 L, Albumin 2.8 L, Globulin 3.2, Albumin/Globulin Ratio 0.9 02/25/20 06:05: WBC Pending, RBC Pending, Hgb Pending, Hct Pending, MCV Pending, MCH Pending, MCHC Pending, RDW Std Deviation Pending, RDW Coeff of Jovi Pending, Plt Count Pending, Neut % (Auto) Pending, Absolute Neuts (auto) Pending 02/25/20 06:05: Sodium Pending, Potassium Pending, Chloride Pending, Carbon Dioxide Pending, Anion Gap Pending, BUN Pending, Creatinine Pending, Est GFR (MDRD) Af Amer Pending, Est GFR (MDRD) Non-Af Pending, BUN/Creatinine Ratio Pending, Glucose Pending, Calcium Pending, Total Bilirubin Pending, AST Pending, ALT Pending, Alkaline Phosphatase Pending, Total Protein Pending, Albumin Pending Current Medications Acetaminophen (Acetaminophen 325 Mg Tablet) 650 mg PO Q6H PRN PRN PRN Reason: Pain Score 1-10/Temp > 100.7 F Last Admin: 02/23/20 07:48 Dose: 650 mg Documented by: Amlodipine Besylate (Amlodipine 10 Mg Tablet) 10 mg PO DAILY [facility] Last Admin: 02/24/20 10:27 Dose: 10 mg Documented by: Aspirin (Aspirin 81 Mg Tab.Chew) 81 mg PO DAILY [facility] Last Admin: 02/24/20 10:27 Dose: 81 mg Documented by: Cyclobenzaprine HCl (Cyclobenzaprine Hcl 10 Mg Tablet) 10 mg PO QHS PRN PRN Reason: muscle spasms Last Admin: 02/21/20 21:44 Dose: 10 mg Documented by: Dexamethasone (Dexamethasone 2 Mg Tablet) 6 mg PO DAILY [facility] Last Admin: 02/24/20 10:27 Dose: 6 mg Documented by: Donepezil HCl (Donepezil Hcl 10 Mg Tablet) 20 mg PO DAILY [facility] Last Admin: 02/24/20 10:27 Dose: 20 mg Documented by: Enoxaparin Sodium (Enoxaparin 30 Mg/0.3 Ml Syringe) 30 mg SC BID [facility] Last Admin: 02/24/20 21:22 Dose: 30 mg Documented by: Famotidine (Famotidine 20 Mg Tablet) 20 mg PO BID PRN PRN PRN Reason: gerd Guaifenesin (Guaifenesin 10 Ml Udc (200mg/10ml)) 20 ml PO Q4H PRN PRN PRN Reason: COUGH Last Admin: 02/23/20 03:36 Dose: 20 ml Documented by: Haloperidol Lactate (Haloperidol Lactate 5 Mg/Ml Vial) 2 mg IM Q6H PRN PRN PRN Reason: AGITATION Last Admin: 02/20/20 22:47 Dose: 2 mg Documented by: Hydralazine HCl (Hydralazine 20 Mg/Ml Vial) 10 mg IV Q4H PRN PRN PRN Reason: SBP > 160 Last Admin: 02/22/20 20:16 Dose: 10 mg Documented by: Sodium Chloride () 1,000 mls @ 75 mls/hr IV .[id number] [facility] Last Admin: 02/25/20 00:26 Dose: 75 mls/hr Documented by: Melatonin (Melatonin 3 Mg Tablet) 3 mg PO QHS [facility] Last Admin: 02/24/20 21:22 Dose: 3 mg Documented by: Memantine (Memantine Hydrochloride 10 Mg Tablet) 10 mg PO BID [facility] Last Admin: 02/24/20 21:23 Dose: 10 mg Documented by: Metoprolol Tartrate (Metoprolol Tartrate 25 Mg Tablet) 25 mg PO DAILY [facility] Last Admin: 02/24/20 10:27 Dose: 25 mg Documented by: Multivitamins (Vitamin B Comp W-C Capsule) 1 capsule PO DAILY [facility] Last Admin: 02/24/20 10:28 Dose: 1 capsule Documented by: Ondansetron HCl (Ondansetron 4 Mg/2 Ml Vial) 4 mg IV Q8H PRN PRN PRN Reason: NAUSEA/VOMITING Pantoprazole Sodium (Pantoprazole Sodium 20 Mg Tablet) 20 mg PO DAILY [facility] Last Admin: 02/24/20 10:27 Dose: 20 mg Documented by: Pravastatin Sodium (Pravastatin 40 Mg Tablet) 40 mg PO DAILY@2200 [facility] Last Admin: 02/24/20 21:23 Dose: 40 mg Documented by: Sodium Chloride (0.9% Saline Lock 10 Ml Syringe) 10 - 40 ml IV UD PRN PRN Reason: SALINE FLUSH Last Admin: 02/22/20 20:18 Dose: 10 ml Documented by: STROKE Vital Signs/Narrative: Vital Signs Temp Pulse Resp BP Pulse Ox 02/25/20 07:01 98.3 F 83 24 H 154/84 H 94 Medical Necessity - Tobacco Use Smoking Status: Never smoker Assessment/Plan All Active Problems Pneumonia (Acute) Dehydration (Acute) SARS (severe acute respiratory syndrome) (Acute) RAUL (acute kidney injury) (Acute) Encephalopathy acute (Acute) COVID-19 (Acute) Patient is a 74-year-old gentleman with underlying history of dementia admitted with increasing fatigue malaise and confusion and assessment of acute metabolic encephalopathy secondary to acute COVID-19 admitted to a monitored bed for subsequent management 1. Acute metabolic encephalopathy secondary to acute COVID-19 ?Patient managed with Decadron supplemental oxygen. Patient was deemed not a candidate for convalescent plasma and remdesivir 2. Dementia with behavioral agitation ?Precipitated by patient COVID-19. Patient is on Aricept and Namenda 3. Acute kidney injury ?Managed with IV fluids 4. Chronic kidney disease stage III ?Kidney function back to baseline 5. Hypertension - Blood pressure controlled, home medications continued with dose adjustment as needed 6. Dyslipidemia -Patient is on statin therapy, continued at home dose 7. GERD ?On PPI 8. DVT prophylaxis ?Lovenox 9. Hypernatremia ?Patient started on D5 half-normal saline with monitoring of electrolytes 02/25/2020; Patient sodium level still remains elevated at 147 is on half-normal saline with monitoring of electrolytes 10. Physical deconditioning - Requested for PT OT eval and group social worker to assist with discharge planning -02/25/2020; had a discussion with patient's who did agree to patient being discharged to a fdc facility Inpatient E&M: 82919 [facility] L2
[2020-02-25 07:39] LABS: Differential Indicated SCAN CRITERIA MET
[2020-02-25 07:55] LABS: ALB/GLOB Ratio 0.6 RATIO (0.9-2.4); AST(SGOT) 61 U/L (15-37); Alanine Aminotransfer ALT/SGPT 53 U/L (16-61); Albumin, Serum 2.6 g/dL (3.2-5.0); Alkaline Phosphatase 77 U/L (45-117); Anion Gap 7 (5-15); BUN 32 mg/dL (7-18); BUN/Creat Ratio 27.4 RATIO (10-20); Calcium,Total 8.8 mg/dL (8.5-10.1); Chloride 111 mmol/L (98-107); Creatinine, Serum 1.17 mg/dL (0.70-1.30); EST Glomerular Filtration Rate 65 mL/min (>60); Est Glom Filt Rate - Afr Amer 78 mL/min (>60); Estimated Creatinine Clearance 61.72 ml/min; Globulin 4.4 g/dL (2.2-4.2); Glucose 107 mg/dL (74-106); Potassium 3.8 mmol/L (3.5-5.1); Sodium Level 147 mmol/L (136-145)
[2020-02-25 08:03] LABS: Differential Comment SCANNED
--- NOTE | 2020-02-25 09:12 | CASEMGMT ---
SW called [facility], spoke w/Prudence, she will let this SW if they have accepted pt and will start precert. DALE Valverde
[2020-02-25] MEDS: Enoxaparin 30 MG/0.3 ML Syringe SC ×2 (09:34→21:11)
[2020-02-25] MEDS: Donepezil HCl 10 MG Tablet 20 MG PO (09:34)
[2020-02-25] MEDS: Vitamin B Comp W-C Capsule 1 CAP PO (09:35)
[2020-02-25] MEDS: dexAMETHasone 2 MG TABLET 6 MG PO (09:35)
[2020-02-25] MEDS: Memantine Hydrochloride 10 MG Tablet PO ×2 (09:35→21:12)
[2020-02-25] MEDS: Metoprolol Tartrate 25 MG Tablet PO (09:35)
[2020-02-25] MEDS: Aspirin 81 MG TAB.CHEW PO (09:35)
[2020-02-25] MEDS: Pantoprazole Sodium 20 MG Tablet PO (09:36)
[2020-02-25] MEDS: amLODIPine 10 MG Tablet PO (09:36)
--- NOTE | 2020-02-25 10:11 | CASEMGMT ---
Addendum entered by Vanessa Pierre 02/25/20 11:15: SW called facilities off of the list of places that will take COVID patients, to see if any take [employer]; multiple messages left. SW left messages at the following facilities: 1. [facility] (listed on [employer] website as in network) 2. [facility] 3. [facility] 4. [facility] does not take [employer]; [facility] is not taking any pts at this time. SW will wait for the above facilities to return this SW's call. DALE Valverde Original Note: [facility] will not have any bed availability until next week. SW will call facilities to see where else may take pt's insurance and then will call . DALE Valverde
--- NOTE | 2020-02-25 12:08 | CASEMGMT ---
SW did get a call back from [facility] in [place], they take pt's insurance and would consider pt. SW attempted to call twice, no answer. SW called [facility] again, they do take [employer] and are taking COVID patients. SW will send referrals to both facilities and will continue to try to reach the . DALE Valverde
--- NOTE | 2020-02-25 13:27 | CASEMGMT ---
Addendum entered by Charu Blair 02/25/20 13:35: SW attempted to call pt's Laurie to update. No answer. SW unable to leave message as voicemail is full. Original Note: Social Work Note VERENA faxed referral to Claudia at [facility]. Charu Blair SPEECH LANGUAGE SPECIALIST, LABORER AMMUNITION ASSEMBLY
--- NOTE | 2020-02-25 15:44 | CASEMGMT ---
VERENA called [facility] in [place], they have the referral and will let SW know if htey can take pt. DALE Valverde
[2020-02-25] MEDS: Pravastatin 40 MG Tablet PO (21:12)
[2020-02-25] MEDS: MELATONIN 3 MG TABLET PO (21:12)
[2020-02-26] VITALS (9 sets, daily range): BP systolic 128–163; BP diastolic 79–97; PULSE 69–80; RESP 18–22; TEMP 36.4–37.1; O2SAT 91–99
[2020-02-26] MEDS: 0.45% Normal Saline 1,000 ML 75 ML IV ×2 (01:49→15:13)
--- NOTE | 2020-02-26 07:42 | PCM.PN.HOSP ---
Patient Problems: Active and Suspected Problems Pneumonia (Acute) Dehydration (Acute) SARS (severe acute respiratory syndrome) (Acute) RAUL (acute kidney injury) (Acute) Encephalopathy acute (Acute) COVID-19 (Acute) Reason for Visit: Acute hypoxic respiratory failure Subjective: Awaiting insurance precertification prior to transfer to group home facility no significant change in patient's overall clinical condition Objective: GENERAL: Appears delirious HEENT: Atraumatic; EYES; Anicteric, Normal Conjunctiva NECK; supple, normal thyroid, RESPIRATORY: Diminished to auscultation CARDIOVASCULAR: Regular S1 S2, GI: soft, normoactive bowel sounds, : No Renal angle tenderness; EXTREMITIES: No edema, no clubbing, MUSCULOSKELETAL: no muscle waisting NEURO: Awake; no lateralizing signs. SKIN: No Rash PSYCH; Flat affect Vitals/I&O's: Vital Signs Temp Pulse Resp BP Pulse Ox 97.8 F 74 18 146/79 H 99 02/26/20 03:29 02/26/20 03:29 02/26/20 03:34 02/26/20 03:29 02/26/20 03:29 Oxygen Flow Rate (L/min) 3 Oxygen Delivery Method Room Air Weight: 87.997 kg Body Mass Index (BMI) 26.3 Intake and Output for Last 24 Hours 02/24/20 02/25/20 02/26/20 23:59 23:59 23:59 Intake Total 250 / 250 1933.75 / 1933.75 937.5 / 937.5 Balance 250 / 250 1933.75 / 1933.75 937.5 / 937.5 Microbiology Past 72 Hours 02/20/20 14:37 Blood Culture (Wb) - Anticubital Right Blood Culture - Final No growth in 5 days. 02/20/20 14:30 Blood Culture (Wb) - Anticubital Left Blood Culture - Final No growth in 5 days. Laboratory Results 02/25/20 06:05: Differential Comment SCANNED 02/25/20 06:05: Sodium 147 H, Potassium 3.8, Chloride 111 H, Carbon Dioxide 29.0, Anion Gap 7, BUN 32 H, Creatinine 1.17, Estim Creat Clear Calc 61.72, Est GFR (MDRD) Af Amer 78, Est GFR (MDRD) Non-Af 65, BUN/Creatinine Ratio 27.4 H, Glucose 107 H, Calcium 8.8, Total Bilirubin 0.90, AST 61 H, ALT 53, Alkaline Phosphatase 77, Total Protein 7.0, Albumin 2.6 L, Globulin 4.4 H, Albumin/Globulin Ratio 0.6 L Current Medications Acetaminophen (Acetaminophen 325 Mg Tablet) 650 mg PO Q6H PRN PRN PRN Reason: Pain Score 1-10/Temp > 100.7 F Last Admin: 02/23/20 07:48 Dose: 650 mg Documented by: Amlodipine Besylate (Amlodipine 10 Mg Tablet) 10 mg PO DAILY [facility] Last Admin: 02/25/20 09:36 Dose: 10 mg Documented by: Aspirin (Aspirin 81 Mg Tab.Chew) 81 mg PO DAILY [facility] Last Admin: 02/25/20 09:35 Dose: 81 mg Documented by: Cyclobenzaprine HCl (Cyclobenzaprine Hcl 10 Mg Tablet) 10 mg PO QHS PRN PRN Reason: muscle spasms Last Admin: 02/21/20 21:44 Dose: 10 mg Documented by: Dexamethasone (Dexamethasone 2 Mg Tablet) 6 mg PO DAILY [facility] Last Admin: 02/25/20 09:35 Dose: 6 mg Documented by: Donepezil HCl (Donepezil Hcl 10 Mg Tablet) 20 mg PO DAILY [facility] Last Admin: 02/25/20 09:34 Dose: 20 mg Documented by: Enoxaparin Sodium (Enoxaparin 30 Mg/0.3 Ml Syringe) 30 mg SC BID [facility] Last Admin: 02/25/20 21:11 Dose: 30 mg Documented by: Famotidine (Famotidine 20 Mg Tablet) 20 mg PO BID PRN PRN PRN Reason: gerd Guaifenesin (Guaifenesin 10 Ml Udc (200mg/10ml)) 20 ml PO Q4H PRN PRN PRN Reason: COUGH Last Admin: 02/23/20 03:36 Dose: 20 ml Documented by: Haloperidol Lactate (Haloperidol Lactate 5 Mg/Ml Vial) 2 mg IM Q6H PRN PRN PRN Reason: AGITATION Last Admin: 02/20/20 22:47 Dose: 2 mg Documented by: Hydralazine HCl (Hydralazine 20 Mg/Ml Vial) 10 mg IV Q4H PRN PRN PRN Reason: SBP > 160 Last Admin: 02/22/20 20:16 Dose: 10 mg Documented by: Sodium Chloride () 1,000 mls @ 75 mls/hr IV .[id number] [facility] Last Admin: 02/26/20 01:49 Dose: 75 mls/hr Documented by: Melatonin (Melatonin 3 Mg Tablet) 3 mg PO QHS [facility] Last Admin: 02/25/20 21:12 Dose: 3 mg Documented by: Memantine (Memantine Hydrochloride 10 Mg Tablet) 10 mg PO BID [facility] Last Admin: 02/25/20 21:12 Dose: 10 mg Documented by: Metoprolol Tartrate (Metoprolol Tartrate 25 Mg Tablet) 25 mg PO DAILY [facility] Last Admin: 02/25/20 09:35 Dose: 25 mg Documented by: Multivitamins (Vitamin B Comp W-C Capsule) 1 capsule PO DAILY [facility] Last Admin: 02/25/20 09:35 Dose: 1 capsule Documented by: Ondansetron HCl (Ondansetron 4 Mg/2 Ml Vial) 4 mg IV Q8H PRN PRN PRN Reason: NAUSEA/VOMITING Pantoprazole Sodium (Pantoprazole Sodium 20 Mg Tablet) 20 mg PO DAILY [facility] Last Admin: 02/25/20 09:36 Dose: 20 mg Documented by: Pravastatin Sodium (Pravastatin 40 Mg Tablet) 40 mg PO DAILY@2200 [facility] Last Admin: 02/25/20 21:12 Dose: 40 mg Documented by: Sodium Chloride (0.9% Saline Lock 10 Ml Syringe) 10 - 40 ml IV UD PRN PRN Reason: SALINE FLUSH Last Admin: 02/22/20 20:18 Dose: 10 ml Documented by: Medical Necessity - Tobacco Use Smoking Status: Never smoker Assessment/Plan All Active Problems Pneumonia (Acute) Dehydration (Acute) SARS (severe acute respiratory syndrome) (Acute) RAUL (acute kidney injury) (Acute) Encephalopathy acute (Acute) COVID-19 (Acute) Patient is a 74-year-old gentleman with underlying history of dementia admitted with increasing fatigue malaise and confusion and assessment of acute metabolic encephalopathy secondary to acute COVID-19 admitted to a monitored bed for subsequent management 1. Acute metabolic encephalopathy secondary to acute COVID-19 ?Patient managed with Decadron supplemental oxygen. Patient was deemed not a candidate for convalescent plasma and remdesivir -02/26/2020: No clinical change in patient's overall clinical condition. 2. Dementia with behavioral agitation ?Precipitated by patient COVID-19. Patient is on Aricept and Namenda 3. Acute kidney injury ?Managed with IV fluids 4. Chronic kidney disease stage III ?Kidney function back to baseline 5. Hypertension - Blood pressure controlled, home medications continued with dose adjustment as needed 6. Dyslipidemia -Patient is on statin therapy, continued at home dose 7. GERD ?On PPI 8. DVT prophylaxis ?Lovenox 9. Hypernatremia ?Patient started on D5 half-normal saline with monitoring of electrolytes 02/25/2020; Patient sodium level still remains elevated at 147 is on half-normal saline with monitoring of electrolytes 10. Physical deconditioning - Requested for PT OT eval and director social service to assist with discharge planning -02/25/2020; had a discussion with patient's who did agree to patient being discharged to a group home facility Inpatient E&M: [id number] Subs Hosp L2
[2020-02-26] MEDS: amLODIPine 10 MG Tablet PO (10:45)
[2020-02-26] MEDS: Pantoprazole Sodium 20 MG Tablet PO (10:45)
[2020-02-26] MEDS: Vitamin B Comp W-C Capsule 1 CAP PO (10:45)
[2020-02-26] MEDS: Donepezil HCl 10 MG Tablet 20 MG PO (10:45)
[2020-02-26] MEDS: dexAMETHasone 2 MG TABLET 6 MG PO (10:45)
[2020-02-26] MEDS: Enoxaparin 30 MG/0.3 ML Syringe SC ×2 (10:45→20:31)
[2020-02-26] MEDS: Memantine Hydrochloride 10 MG Tablet PO ×2 (10:45→20:27)
[2020-02-26] MEDS: Metoprolol Tartrate 25 MG Tablet PO (10:45)
[2020-02-26] MEDS: Aspirin 81 MG TAB.CHEW PO (10:45)
--- NOTE | 2020-02-26 11:14 | CASEMGMT ---
Social Work Return call from [facility] and they are unable to accept pt at this time due to his confusion and encephalopathy. SW spoke with [facility] and they do accept pt insurance but do not currently have any beds available until 03/02/20. Spoke with Valentina Griffith and they are not accepting Covid pt from hospitals. Phone call to [facility] and [facility] and left requesting return call. Phone call to [facility] and spoke with admissions who states that they currently have a covid positive pt in the memory care unit and may be able to take pt there. stroke program coordinator to check with administration and will call VERENA back. NANCY Vazquez
--- NOTE | 2020-02-26 13:28 | CASEMGMT ---
Social Work Return call from [facility] and they are unable to accept pt at this time due to his confusion and encephalopathy. SW spoke with [facility] and they do accept pt insurance and Covid positive pt but do not currently have any beds available until 03/02/20. Phone call to the following in network facilities who cannot accept Covid postive pt [facility] Phone call to [facility], [facility] and left requesting return call. Referral faxed to [facility] and [facility] who are in network with insurance and accepting Covid positive patients. Awaiting determination. VERENA spoke with pt and updated that SW is continuing to work on finding an accepting facility but at this time no confirmation of acceptance. Pt understanding. NANCY Vazquez
--- NOTE | 2020-02-26 14:31 | CASEMGMT ---
Addendum entered by Charu Blair 02/26/20 15:52: SW received message from Caroline at [facility] in [place] stating they are not taking COVID+ pts. Addendum entered by Charu Blair 02/26/20 15:02: SW received message from Bhavesh at [facility] stating they are not taking COVID+ pts. Original Note: Social Work Note SW called multiple facilities to inquire if they accept COVID+ pts. [facility]: SW left message for Bertha in admissions. [facility] in [place]: SW spoke with Merry, not taking COVID+ pts. [facility]: SW left message for Vero in admissions. [facility] in [place]: SW spoke with Germaine, not taking COVID+ pts. [facility]: SW called and left message in admissions. [facility] [place]: SW spoke with Sofia in admissions, not taking COVID+ pts. [facility] in [place]: SW left message for Caroline in admissions [facility]: SW spoke with admissions, not taking COVID+ at this time. [facility] in [place]: SW spoke with Gretel in admissions, not taking COVID+ at this time, not taking any pt's at this time. [facility] in [place]: SW spoke with admissions, not taking COVID+ pts. [facility] in [place]: SW left message for Bhavesh in admissions. [facility] in [place]: SW left message for Pam in admissions. SW to continue to follow for SNF placement. Charu Blair APPEALS REVIEWER VETERAN, MEDICAL HOSPITAL SALES
--- NOTE | 2020-02-26 15:17 | CASEMGMT ---
Social Work Return call from [facility] and they are able to accept pt. SW will await reply from other two facilities that referrals were made to and speak with about options. Will update [facility] on 's wishes tomorrow. NANCY Vazquez
[2020-02-26] MEDS: Pravastatin 40 MG Tablet PO (20:27)
[2020-02-26] MEDS: MELATONIN 3 MG TABLET PO (20:27)
[2020-02-26] MEDS: hydrALAZINE 20 MG/ML Vial 10 MG IV (20:31)
[2020-02-27] VITALS (7 sets, daily range): BP systolic 142–160; BP diastolic 78–93; PULSE 60–71; RESP 18; TEMP 36.6–37.1; O2SAT 91–93
[2020-02-27] MEDS: 0.45% Normal Saline 1,000 ML 75 ML IV ×2 (03:38→15:47)
--- NOTE | 2020-02-27 07:30 | PN_ITS ---
Patient Problems: Active and Suspected Problems Pneumonia (Acute) Dehydration (Acute) SARS (severe acute respiratory syndrome) (Acute) RAUL (acute kidney injury) (Acute) Encephalopathy acute (Acute) COVID-19 (Acute) Reason for Visit: acute metabolic encephalopathy secondary to acute COVID-19 Subjective: Patient is a 74-year-old gentleman with underlying history of dementia admitted with increasing fatigue malaise and confusion and assessment of acute metabolic encephalopathy secondary to acute COVID-19 admitted to a monitored bed for subsequent management 02/25/2020; had a discussion with patient's who did agree to patient being discharged to a custodial facility -Patient sodium level still remains elevated at 147 is on half-normal saline with monitoring of electrolytes 02/26/2020 patient seen no change in overall clinical condition awaiting placement Objective: GENERAL: Appears delirious HEENT: Atraumatic; EYES; Anicteric, Normal Conjunctiva NECK; supple, normal thyroid, RESPIRATORY: Diminished to auscultation CARDIOVASCULAR: Regular S1 S2, GI: soft, normoactive bowel sounds, : No Renal angle tenderness; EXTREMITIES: No edema, no clubbing, MUSCULOSKELETAL: no muscle waisting NEURO: Awake; no lateralizing signs. SKIN: No Rash PSYCH; Flat affect Vitals/I&O's: Vital Signs Temp Pulse Resp BP Pulse Ox 98.2 F 65 18 154/93 H 92 02/27/20 01:40 02/27/20 01:40 02/27/20 01:40 02/27/20 01:40 02/27/20 01:40 Oxygen Flow Rate (L/min) 3 Oxygen Delivery Method Room Air Weight: 87.997 kg Body Mass Index (BMI) 26.3 Intake and Output for Last 24 Hours 02/25/20 02/26/20 02/27/20 23:59 23:59 23:59 Intake Total 1933.75 / 1933.75 1937.5 / 1937.5 931.25 / 931.25 Balance 1933.75 / 1933.75 1937.5 / 1937.5 931.25 / 931.25 Microbiology Past 72 Hours 02/20/20 14:37 Blood Culture (Wb) - Anticubital Right Blood Culture - Final No growth in 5 days. 02/20/20 14:30 Blood Culture (Wb) - Anticubital Left Blood Culture - Final No growth in 5 days. Current Medications Acetaminophen (Acetaminophen 325 Mg Tablet) 650 mg PO Q6H PRN PRN PRN Reason: Pain Score 1-10/Temp > 100.7 F Last Admin: 02/23/20 07:48 Dose: 650 mg Documented by: Amlodipine Besylate (Amlodipine 10 Mg Tablet) 10 mg PO DAILY [facility] Last Admin: 02/26/20 10:45 Dose: 10 mg Documented by: Aspirin (Aspirin 81 Mg Tab.Chew) 81 mg PO DAILY [facility] Last Admin: 02/26/20 10:45 Dose: 81 mg Documented by: Cyclobenzaprine HCl (Cyclobenzaprine Hcl 10 Mg Tablet) 10 mg PO QHS PRN PRN Reason: muscle spasms Last Admin: 02/21/20 21:44 Dose: 10 mg Documented by: Dexamethasone (Dexamethasone 2 Mg Tablet) 6 mg PO DAILY [facility] Last Admin: 02/26/20 10:45 Dose: 6 mg Documented by: Donepezil HCl (Donepezil Hcl 10 Mg Tablet) 20 mg PO DAILY [facility] Last Admin: 02/26/20 10:45 Dose: 20 mg Documented by: Enoxaparin Sodium (Enoxaparin 30 Mg/0.3 Ml Syringe) 30 mg SC BID [facility] Last Admin: 02/26/20 20:31 Dose: 30 mg Documented by: Famotidine (Famotidine 20 Mg Tablet) 20 mg PO BID PRN PRN PRN Reason: gerd Guaifenesin (Guaifenesin 10 Ml Udc (200mg/10ml)) 20 ml PO Q4H PRN PRN PRN Reason: COUGH Last Admin: 02/23/20 03:36 Dose: 20 ml Documented by: Haloperidol Lactate (Haloperidol Lactate 5 Mg/Ml Vial) 2 mg IM Q6H PRN PRN PRN Reason: AGITATION Last Admin: 02/20/20 22:47 Dose: 2 mg Documented by: Hydralazine HCl (Hydralazine 20 Mg/Ml Vial) 10 mg IV Q4H PRN PRN PRN Reason: SBP > 160 Last Admin: 02/26/20 20:31 Dose: 10 mg Documented by: Sodium Chloride () 1,000 mls @ 75 mls/hr IV .[id number] [facility] Last Admin: 02/27/20 03:38 Dose: 75 mls/hr Documented by: Melatonin (Melatonin 3 Mg Tablet) 3 mg PO QHS [facility] Last Admin: 02/26/20 20:27 Dose: 3 mg Documented by: Memantine (Memantine Hydrochloride 10 Mg Tablet) 10 mg PO BID [facility] Last Admin: 02/26/20 20:27 Dose: 10 mg Documented by: Metoprolol Tartrate (Metoprolol Tartrate 25 Mg Tablet) 25 mg PO DAILY [facility] Last Admin: 02/26/20 10:45 Dose: 25 mg Documented by: Multivitamins (Vitamin B Comp W-C Capsule) 1 capsule PO DAILY [facility] Last Admin: 02/26/20 10:45 Dose: 1 capsule Documented by: Ondansetron HCl (Ondansetron 4 Mg/2 Ml Vial) 4 mg IV Q8H PRN PRN PRN Reason: NAUSEA/VOMITING Pantoprazole Sodium (Pantoprazole Sodium 20 Mg Tablet) 20 mg PO DAILY [facility] Last Admin: 02/26/20 10:45 Dose: 20 mg Documented by: Pravastatin Sodium (Pravastatin 40 Mg Tablet) 40 mg PO DAILY@2200 [facility] Last Admin: 02/26/20 20:27 Dose: 40 mg Documented by: Sodium Chloride (0.9% Saline Lock 10 Ml Syringe) 10 - 40 ml IV UD PRN PRN Reason: SALINE FLUSH Last Admin: 02/22/20 20:18 Dose: 10 ml Documented by: Medical Necessity - Tobacco Use Smoking Status: Never smoker Assessment/Plan All Active Problems Pneumonia (Acute) Dehydration (Acute) SARS (severe acute respiratory syndrome) (Acute) RAUL (acute kidney injury) (Acute) Encephalopathy acute (Acute) COVID-19 (Acute) Patient is a 74-year-old gentleman with underlying history of dementia admitted with increasing fatigue malaise and confusion and assessment of acute metabolic encephalopathy secondary to acute COVID-19 admitted to a monitored bed for subsequent management 1. Acute metabolic encephalopathy secondary to acute COVID-19 ?Patient managed with Decadron supplemental oxygen. Patient was deemed not a candidate for convalescent plasma and remdesivir -02/26/2020: No clinical change in patient's overall clinical condition. -02/26/2020 patient seen no change in overall clinical condition awaiting placement 2. Dementia with behavioral agitation ?Precipitated by patient COVID-19. Patient is on Aricept and Namenda 3. Acute kidney injury ?Managed with IV fluids 4. Chronic kidney disease stage III ?Kidney function back to baseline 5. Hypertension - Blood pressure controlled, home medications continued with dose adjustment as needed 6. Dyslipidemia -Patient is on statin therapy, continued at home dose 7. GERD ?On PPI 8. DVT prophylaxis ?Lovenox 9. Hypernatremia ?Patient started on D5 half-normal saline with monitoring of electrolytes 02/25/2020; Patient sodium level still remains elevated at 147 is on half-normal saline with monitoring of electrolytes 10. Physical deconditioning - Requested for PT OT eval and drug abuse social worker to assist with discharge planning -02/25/2020; had a discussion with patient's who did agree to patient being discharged to a custodial facility Inpatient E&M: [id number] Subs Hosp L2
[2020-02-27 07:58] LABS: Hematocrit 46.5 % (40-54); Hemoglobin 15.4 g/dL (13.0-16.5); Mean Corp Hgb Conc 33.1 g/dL (32-36); Mean Corpuscular Hgb 30.3 pg (27.0-32.0); Mean Corpuscular Volume 91.5 fL (80-94); Mean Platelet Vol. 10.2 fl (6.2-12.0); Platelet Count 226 K/mm3 (150-450); RBC Distribution Width CV 13.4 % (11.6-14.6); RBC Distribution Width SD 46.1 fl (35.1-43.9); Red Blood Count 5.08 M/mm3 (4.6-6.2); White Blood Count 8.5 K/mm3 (4.4-11.0)
[2020-02-27 08:46] LABS: Anion Gap 6 (5-15); BUN 33 mg/dL (7-18); BUN/Creat Ratio 34.3 RATIO (10-20); Calcium,Total 8.8 mg/dL (8.5-10.1); Chloride 120 mmol/L (98-107); Creatinine, Serum 0.96 mg/dL (0.70-1.30); EST Glomerular Filtration Rate 81 mL/min (>60); Est Glom Filt Rate - Afr Amer 98 mL/min (>60); Estimated Creatinine Clearance 75.22 ml/min; Glucose 119 mg/dL (74-106); Magnesium 2.6 mg/dL (1.6-2.6); Potassium 3.9 mmol/L (3.5-5.1); Sodium Level 148 mmol/L (136-145)
[2020-02-27] MEDS: Enoxaparin 30 MG/0.3 ML Syringe SC ×2 (08:47→21:01)
[2020-02-27] MEDS: amLODIPine 10 MG Tablet PO (08:48)
[2020-02-27] MEDS: Metoprolol Tartrate 25 MG Tablet PO (08:48)
[2020-02-27] MEDS: Memantine Hydrochloride 10 MG Tablet PO ×2 (08:48→21:01)
[2020-02-27] MEDS: Donepezil HCl 10 MG Tablet 20 MG PO (08:48)
[2020-02-27] MEDS: Pantoprazole Sodium 20 MG Tablet PO (08:48)
[2020-02-27] MEDS: dexAMETHasone 2 MG TABLET 6 MG PO (08:48)
[2020-02-27] MEDS: Vitamin B Comp W-C Capsule 1 CAP PO (08:48)
[2020-02-27] MEDS: Aspirin 81 MG TAB.CHEW PO (08:49)
--- NOTE | 2020-02-27 12:44 | CASEMGMT ---
Social Work Phone call to [facility] and they feel they may be able to accept pt and will make final decision and followup with SW. Phone call to [facility] and left . SW spoke with pt Laurie about discharge plan explaining that [facility] and likely [facility] could accept pt. Laurie would prefer [facility] if available. SW left with Milagro at [facility] to procede with referral. Will await return call. Plan: [facility] SNF, pending acceptance and insurance precert. NANCY Vazquez
--- NOTE | 2020-02-27 14:14 | CASEMGMT ---
Social Work SW placed two followup calls to Milagro, admission director at [facility] to check on admission status of patient. Messages left requesting return call. NANCY Vazquez
--- NOTE | 2020-02-27 15:13 | CASEMGMT ---
Social Work Note SW placed a call to [facility] and left message for Milagro regarding referral. SW waiting for call back. Charu Blair TALLIER, HOTEL BAGGAGE HANDLER
[2020-02-27] MEDS: Pravastatin 40 MG Tablet PO (21:01)
[2020-02-27] MEDS: MELATONIN 3 MG TABLET PO (21:01)
[2020-02-28] VITALS (8 sets, daily range): BP systolic 158–168; BP diastolic 81–91; PULSE 59–65; RESP 16–24; TEMP 36.4–36.9; O2SAT 90–95
[2020-02-28] MEDS: 0.45% Normal Saline 1,000 ML 75 ML IV (03:14)
--- NOTE | 2020-02-28 09:10 | CASEMGMT ---
Addendum entered by Maria Del Carmen Garcia 02/28/20 11:56: Social Work Phone call placed to [facility] again. VERENA was able to speak with Milagro in admissions who states that now they do not have a bed available for pt and cannot accept. Phone call to Jasmeet at [facility] who states they are able to accept pt today. Per Jasmeet, pt insurance is waiving precerts at this time. Updated clinicals faxed and Jasmeet will review and call SW back with confirmation of acceptance today. Phone call to pt Laurie and updated that pt cannot go to [facility] but a bed is available at [place] and discharge will likely be today. Laurie is agreeable to this discharge plan. VERENA spoke with Laurie about coping with pt illness. Emotional support provided. VERENA to continue to follow for d/c planning. NANCY Vazquez Original Note: Social Work Phone call to [facility]. Message left for admissions requesting return call. NANCY Vazquez
[2020-02-28] MEDS: Enoxaparin 30 MG/0.3 ML Syringe SC (09:14)
[2020-02-28] MEDS: dexAMETHasone 2 MG TABLET 6 MG PO (09:15)
[2020-02-28] MEDS: amLODIPine 10 MG Tablet PO (09:16)
[2020-02-28] MEDS: Memantine Hydrochloride 10 MG Tablet PO (09:16)
[2020-02-28] MEDS: Aspirin 81 MG TAB.CHEW PO (09:16)
[2020-02-28] MEDS: Metoprolol Tartrate 25 MG Tablet PO (09:16)
[2020-02-28] MEDS: Pantoprazole Sodium 20 MG Tablet PO (09:16)
[2020-02-28] MEDS: Vitamin B Comp W-C Capsule 1 CAP PO (09:16)
[2020-02-28] MEDS: Donepezil HCl 10 MG Tablet 20 MG PO (09:16)
[2020-02-28 09:19] LABS: Hematocrit 46.8 % (40-54); Hemoglobin 15.1 g/dL (13.0-16.5); Mean Corp Hgb Conc 32.3 g/dL (32-36); Mean Corpuscular Hgb 29.8 pg (27.0-32.0); Mean Corpuscular Volume 92.3 fL (80-94); Mean Platelet Vol. 10.9 fl (6.2-12.0); Platelet Count 246 K/mm3 (150-450); RBC Distribution Width CV 13.3 % (11.6-14.6); RBC Distribution Width SD 45.3 fl (35.1-43.9); Red Blood Count 5.07 M/mm3 (4.6-6.2); White Blood Count 8.5 K/mm3 (4.4-11.0)
[2020-02-28 09:44] LABS: Anion Gap 9 (5-15); BUN 33 mg/dL (7-18); BUN/Creat Ratio 28.4 RATIO (10-20); Calcium,Total 8.4 mg/dL (8.5-10.1); Chloride 122 mmol/L (98-107); Creatinine, Serum 1.16 mg/dL (0.70-1.30); EST Glomerular Filtration Rate 65 mL/min (>60); Est Glom Filt Rate - Afr Amer 79 mL/min (>60); Estimated Creatinine Clearance 62.25 ml/min; Glucose 107 mg/dL (74-106); Potassium 5.4 mmol/L (3.5-5.1); Sodium Level 150 mmol/L (136-145)
--- NOTE | 2020-02-28 13:14 | PCM.TXEXTCAR ---
- Diet 02/20/20 20:36 Diet: Regular - General Food consistency:: Pureed Liquid Consistency:: Regular/Thin Dietary Modifications:: Fortified Foods Type of Dietary Supplement:: Ensure Clear Is pt able to select menu?: No - Routine Orders/Code Status Code Status: Full Code - Therapies Physical Therapy: Eval and Treat Occupational Therapy: Eval and Treat - Allergies/Procedures Done in Hospital Allergies/Adverse Reactions: Allergies No Known Allergies Allergy (Verified 02/20/20 13:22) Procedures: None - Type of Care/Length of Stay Estimated LOS: Convalescent Care Less Than 30 days Type of Care Needed: Skilled Rehab Potential: Fair Prognosis: Fair - Additional Orders/Day of Discharge Day of Discharge: 02/28/20 - Dietary and Speech Recommendations Dietitian Recommendations/Changes: Regular diet, ensure clear w/meals. Will fortify foods when possible. - Follow Up Care Primary Care Physician: Yrn Pinto MD [Primary Care Provider] - Please follow up with your Primary Care Physician in: 3-5 days
--- NOTE | 2020-02-28 13:33 | CASEMGMT ---
Social Work Return call from Jasmeet at [facility] and they are able to accept pt today. Per Jasmeet, at this time pt insurance is waiving the need for precerts. Physician notified and pt is ready for discharge. [id number] convalescent form completed and faxed along with orders to [facility]. [facility] arranged with [facility] for 2:30 medicinal plant picker by cot. Phone call to [facility] and notified of discharge time. Nursing made aware. Pt notified of discharge time and place and is agreeable. NANCY Vazquez
--- NOTE | 2020-02-28 18:13 | DS.PCM_ITS ---
Discharge Date and Diagnosis - Problem List Patient Problems: Active and Suspected Problems Pneumonia (Acute) Dehydration (Acute) SARS (severe acute respiratory syndrome) (Acute) RAUL (acute kidney injury) (Acute) Encephalopathy acute (Acute) COVID-19 (Acute) Date of Admission: 02/20/20 Date of Discharge: 02/28/20 - Primary Discharge Diagnosis Acute Problems: Active Problems Pneumonia (Acute) Dehydration (Acute) SARS (severe acute respiratory syndrome) (Acute) RAUL (acute kidney injury) (Acute) Encephalopathy acute (Acute) COVID-19 (Acute) - Secondary Discharge Diagnosis Chronic Problems: Chronic Problems Dementia (Chronic) Hypertension (Chronic) High cholesterol (Chronic) Hospital Course and Treatment Imaging Results: Clinical Impression(s) from Imaging Studies Brain CT 02/20/20 13:31 IMPRESSION: Chronic involutional changes of the brain. Electronically Signed: Tu Rosario, at 15:41 EST , Service support , Abdomen/Pelvis CT 02/20/20 13:32 IMPRESSION: Infiltration in the right lower lobe with pericardial thickening bilaterally and mild increased markings at the left lung base. Sigmoid diverticulosis. Electronically Signed: Tu Rosario, at 15:40 EST , Service support , Chest X-Ray 02/20/20 19:40 IMPRESSION: Normal x-ray examination of the chest. Electronically Signed: Carlos A Tobin DO at 20:31 EST Tel [phone], Service support , Chest CTA 02/22/20 08:48 IMPRESSION: No evidence of pulmonary embolism. Patchy bilateral infiltrates consistent with the clinical history of Covid 19 pneumonia. Electronically Signed: Chris Li MD at 9:58 EST Tel , Service support , Consults: ID Pulmonology Operations: None Procedures: None Summary of Care Provided: Per HPI: The patient is a 74 year old M with a significant history of HTN and dementia who presents to the ED with altered mental status that started about 1 week. Reportedly patient has been moaning in pain with movement. He has not been eating or drinking for the last 3 to 4 days. And he has had a cough for about 3 weeks. History was taken from emergency department doctor and (over the phone) as well as from ED triage notes since patient is confused. Hospital Course: 1. Acute hypoxic respiratory insufficiency secondary to Covid pneumonia/metabolic encephalopathy/dementia/[id number] male with a significant history of dementia present to the hospital with COVID-19 pneumonia. He had not been eating or drinking for a few days prior to admission so was likely dehydrated and was found to be hypernatremic. His sodium was difficult to bring down and he was transitioned to half-normal saline and on the day of discharge she was transitioned to D5W, this difficulty is likely secondary to the Decadron as well and I would anticipate that once he completes his course of Decadron his sodium should return back to baseline. He has fluctuated and his need for oxygen and was not a candidate for remdesivir or convalescent plasma however he will complete 2 more days of Decadron to complete a total course of 10 days. Hopefully once the steroid is completed and he gets past his Covid pneumonia his encephalopathy should resolve. We will continue with his home dementia medications. There is been a previous discussion about placing him in a group home facility per the family which they understood. He was transferred today to the group home facility, recommend that he have a BMP while there to monitor sodium and if necessary start him on free water to control the sodium level. His creatinine on the day of discharge was 1.16 which is improved from his baseline of around 1.4. 2. Hypertension, hyperlipidemia, chronic kidney disease stage III, GERD, are all chronic medical conditions which complicate his care. His home medications were continued where appropriate Patient Problems: Active and Suspected Problems Pneumonia (Acute) Dehydration (Acute) SARS (severe acute respiratory syndrome) (Acute) RAUL (acute kidney injury) (Acute) Encephalopathy acute (Acute) COVID-19 (Acute) - Physical Exam Vitals/I&O's: Vital Signs Temp Pulse Resp BP Pulse Ox 97.8 F 61 18 158/81 H 92 02/28/20 14:30 02/28/20 14:30 02/28/20 14:30 02/28/20 14:30 02/28/20 14:30 Oxygen Flow Rate (L/min) 4 Oxygen Delivery Method Room Air Weight: 194 lb 0.003 oz Body Mass Index (BMI) 26.3 Intake and Output for Last 24 Hours 02/26/20 02/27/20 02/28/20 23:59 23:59 23:59 Intake Total 1936.5 / 1936.5 2292.50 / 2292.50 1710.00 / 1710.00 Balance 1936.5 / 1936.5 2292.50 / 2292.50 1710.00 / 1710.00 General: Confused, Disoriented HEENT: Atraumatic, PERRLA, Normocephalic Oral: Moist Mucosa Neck: Supple, No JVD Lungs: Normal air movement, No rhonchi, No wheeze, No rales, Diminished Cardiovascular: Regular rate, Regular Rhythm, Normal S1, Normal S2, No murmurs Abdomen: Soft, Non Tender, Non-Distended, No Hepato-splenomegaly Extremities: No edema, Capillary Refill Less than 3 Seconds Skin: No rashes, No breakdown Neurological: Neuro grossly intact, Sensory exam intact to light touch and pain Psych/Mental Status: Flat Affect Microbiology Past 72 Hours 02/20/20 14:37 Blood Culture (Wb) - Anticubital Right Blood Culture - Final No growth in 5 days. 02/20/20 14:30 Blood Culture (Wb) - Anticubital Left Blood Culture - Final No growth in 5 days. Laboratory Results 02/28/20 08:40: WBC 8.5, RBC 5.07, Hgb 15.1, Hct 46.8, MCV 92.3, MCH 29.8, MCHC 32.3, RDW Std Deviation 45.3 H, RDW Coeff of Jovi 13.3, Plt Count 246, MPV 10.9 02/28/20 08:40: Sodium 150 H, Potassium 5.4 H, Chloride 122 H, Carbon Dioxide 19.0 L, Anion Gap 9, BUN 33 H, Creatinine 1.16, Estim Creat Clear Calc 62.25, Est GFR (MDRD) Af Amer 79, Est GFR (MDRD) Non-Af 65, BUN/Creatinine Ratio 28.4 H , Glucose 107 H, Calcium 8.4 L Home Medications: Medications to take at Discharge Amlodipine [Norvasc] 10 mg PO DAILY 02/20/20 Aspirin [Aspirin, Baby] 81 mg PO DAILY 02/20/20 Donepezil HCl [Aricept] 23 mg PO DAILY 02/20/20 Famotidine 20 mg PO BID PRN 02/20/20 Memantine HCl [Namenda] 10 mg PO BID 02/20/20 Metoprolol Tartrate 25 mg PO DAILY 02/20/20 Omeprazole [Prilosec] 20 mg PO QHS 02/20/20 Pravastatin [Pravachol] 40 mg PO DAILY 02/20/20 Vitamin B Complex 1 tab PO DAILY 02/20/20 cycloBENZAPRine HCl [Flexeril] 10 mg PO QHS PRN 02/20/20 dexAMETHasone [Dexamethasone] 6 mg PO DAILY tab 02/28/20 Primary Care Physician: Yrn Pinto MD [Primary Care Provider] - Please follow up with your Primary Care Physician in: 3-5 days Disposition: Halfway facility Minutes spent on discharge:: 35 Patient Condition:: Fair Medical Necessity - Tobacco Use Smoking Status: Never smoker Meaningful Use Info Meaningful Use Diagnoses (Choose all that apply): None applicable Inpatient E&M: 49606 Disch Hosp
== END 2020-02-28 15:45 | disposition skilled nursing facility (03) | DRG 177 ==
LOC: ED 16:09 → MS2 19:52
PROVIDERS: Family Medicine; Internal Medicine; Admitting Provider Hospitalist; Emergency Provider Emergency Medicine; PCP Family Medicine; Visit Provider Family Medicine
DX: U07.1 COVID-19 (principal); J96.01 Acute respiratory failure with hypoxia; G93.41 Metabolic encephalopathy; J12.89 Other viral pneumonia; F03.91 Unspecified dementia, unspecified severity, with behavioral disturbance; N17.9 Acute kidney failure, unspecified; E87.2 Acidosis; E87.0 Hyperosmolality and hypernatremia; K21.9 Gastro-esophageal reflux disease without esophagitis; I12.9 Hypertensive chronic kidney disease with stage 1 through stage 4 chronic kidney disease, or unspecified chronic kidney disease; N18.30 Chronic kidney disease, stage 3 unspecified; E78.5 Hyperlipidemia, unspecified; E86.0 Dehydration; K57.30 Diverticulosis of large intestine without perforation or abscess without bleeding; T38.0X5A Adverse effect of glucocorticoids and synthetic analogues, initial encounter
CPT/HCPCS: 36415; 70450; 71045; 71275; 74176; 80048; 80053; 80076; 81001; 82140; 82728; 82962; 83605; 83615; 83690; 83735; 84145; 84484; 85025; 85027; 85379; 86140; 87040; 87449; 87633; 87635; 92526; 92610; 93005; 93970; 97110; 97116; 97162; 97166; 97530; 97535; 97802; 99285; J7030; J7050; Q9967; A4216; U0002